=== PATIENT | male | born 1945 | race Caucasian/White ===

== ENCOUNTER → 2018-01-24 08:06 | Outpatient (CLI) | payer MEDICARE, OTHER, SELFPAY ==
--- NOTE | 2018-01-24 | DI.CT.S_ITS ---
PROCEDURE: CT LUMBAR SPINE WO CON INDICATIONS: LUMBAR STENOSIS WITH NEUROGENIC CLAUDICATION TECHNIQUE: Noncontrast 3 mm thick sections acquired from the T12 level to the sacrum. Sagittal and coronal reformats were constructed. For radiation dose reduction, the following was used: automated exposure control. COMPARISON: [facility], , L-SPINE WITHOUT CONTRAST, 12/09/2017, 8:10. FINDINGS: Image quality: Diagnostic. Bones: There are 5 lumbar-type vertebral bodies. The lowest intervertebral disk space is designated as L5-S1. The vertebral body heights are well-maintained without evidence to suggest an acute compression fracture. The bone mineralization is within normal limits. There is straightening of the normal lumbar lordosis. No significant spondylolisthesis is evident. Severe multilevel degenerative changes of the lumbar spine are identified demonstrating multilevel disc height loss, endplate sclerosis, scattered Schmorl's nodes, disc osteophyte complexes, and prominent facet arthrosis. Evaluation of the intervertebral discs is limited on CT. There likely are small scattered disc bulges. No obvious disc protrusions or extrusions are identified. There appear to be multifocal areas of central canal and neural foraminal narrowing of the mid to lower lumbar region. Soft tissues: The soft tissues of the imaged abdomen and pelvis are within normal limits. There is mild aortic atherosclerosis. The prostate appears to be somewhat prominent in size. No retroperitoneal lymphadenopathy or fluid collections are evident. Imaged portions of the kidneys are unremarkable. The adrenals do not appear to be enlarged. IMPRESSION: 1. No acute fracture of the lumbar spine. 2. Advanced multilevel degenerative changes of the lumbar spine are more prominent involving the lower lumbar levels. 3. Straightening of the lumbar lordosis. No significant spondylolisthesis. Dictated by: Miguelangel Gomes M.D. on 01/24/2018 at 9:13 Approved by: Miguelangel Gomes M.D. on 01/24/2018 at 9:50
--- NOTE | 2018-01-24 | DI.RAD.S_ITS ---
PROCEDURE: XR HIP W PEL IF DONE BILAT 2V INDICATIONS: LUMBAR STENOSIS WITH NEUROGENIC CLAUDICATION TECHNIQUE: AP pelvis with lateral view(s) of the bilateral hip(s). COMPARISON: [facility], [facility]STEL, SPINE LUMB 6+VW, 07/28/2015, 9:38. FINDINGS: Bones: No fractures or dislocations. Pelvic ring appears intact. No suspicious bony lesions. Soft tissues: The visualized bowel gas pattern is normal. No suspicious soft tissue calcifications. There is a calcification overlying the medial left iliac bone near the inferior sacroiliac joint, previously present on lumbosacral spine plain film imaging 07/28/15. 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 Benign bone radiodensity medial left iliac bone near the inferior left sacroiliac joint measuring approximately 1 cm in diameter. This was also present in 2014. Dictated by: Uriel Richardson M.D. on 01/24/2018 at 9:06 Approved by: Uriel Richardson M.D. on 01/24/2018 at 9:07
== END ==
PROVIDERS: Visit Provider Student in an Organized Health Care Education/Training Program
DX: M48.062 Spinal stenosis, lumbar region with neurogenic claudication (principal); M51.36 Other intervertebral disc degeneration, lumbar region; M47.816 Spondylosis without myelopathy or radiculopathy, lumbar region
CPT/HCPCS: 72131; 73521

== ENCOUNTER → 2020-06-10 10:06 | Outpatient (CLI) | payer MEDICARE, OTHER, SELFPAY ==
--- NOTE | 2020-06-10 10:10 | DI.CT.S_ITS ---
PROCEDURE: CT LUMBAR SPINE WO CON INDICATIONS: Spinal stenosis, lumbar region with neurogenic cla TECHNIQUE: Noncontrast 3 mm thick sections acquired from the T12 level to the sacrum. Sagittal and coronal reformats were constructed. For radiation dose reduction, the following was used: automated exposure control. COMPARISON: [facility], MR, L-SPINE WITHOUT CONTRAST, 07/22/2015, 14:06. [facility], MR, L-SPINE WITHOUT CONTRAST, 12/09/2017, 8:10. [facility], CR, L-SPINE MINIMUM 4 VIEWS, 12/09/2017, 7:03. [facility], CT, CT LUMBAR SPINE WO CON, 01/24/2018, 8:17. FINDINGS: Image quality: Excellent. Bones: With L4-L5 TLIF noted. Orthopedic hardware is intact. No lucency is identified at the bone hardware interface. There is trace L2-L3 and L3-L4 retrolisthesis. No acute vertebral body compression fractures. No suspicious lytic or blastic bony lesions. No pars defects. Schmorl's nodes noted in the superior endplate of the L2, L3 and L4 vertebral bodies. Schmorl's nodes noted in the inferior endplates of the L2 and L3 vertebral bodies. T12-L1: Loss of disc height. Mild, diffuse disc bulge. Anterior endplate osteophytosis. Mild bilateral facet hypertrophy. Mild narrowing of the central canal. Mild bilateral neural foraminal narrowing. No neural compression. L1-L2: Slight loss of disc height. Vacuum disc phenomenon Mild, diffuse disc bulge. Anterior endplate osteophytosis. Mild bilateral facet hypertrophy. Mild narrowing of the central canal. Mild bilateral neural foraminal narrowing. No neural compression. L2-L3: Loss of disc height. Vacuum disc phenomenon. Moderate, diffuse disc bulge. Anterior endplate osteophytosis. [id number] bilateral facet hypertrophy. Moderate narrowing of the central canal. Severe bilateral neural foraminal narrowing with compression of the exiting L2 nerve roots. L3-L4: Loss of disc height. Mild, diffuse disc bulge. Anterior endplate osteophytosis. Moderate bilateral facet hypertrophy. Moderate narrowing of the central canal. Severe right and moderate left neural foraminal narrowing with compression of the exiting right L3 nerve root. L4-L5: Status post fusion. Mild, diffuse disc bulge. Severe right facet hypertrophy. No central stenosis. Mild right neural foraminal narrowing. No neural compression. L5-S1: Disc height is normal. Vacuum disc phenomenon noted. Mild, diffuse disc bulge. Moderate bilateral facet hypertrophy. Mild narrowing of the central canal. Severe right and moderate to severe left neural foraminal narrowing with compression of the exiting L5 nerve roots. Soft tissues: No retroperitoneal masses or hematomas. Visualized aorta is normal in caliber. IMPRESSION: 1. Status post L4-L5 TLIF. 2. Multilevel degenerative disease. 3. Multilevel facet arthropathy. 4. Moderate L2-L3 and L3-L4 central canal narrowing. 5. Severe bilateral L2-L3 neural foraminal narrowing with compression of the exiting bilateral L2 nerve roots. Severe right L3-L4 neural foraminal narrowing with compression of the exiting right L3 nerve root. Severe right and moderate to severe left L5-S1 neural foraminal narrowing with compression of the exiting L5 nerve roots. Dictated by: Lacey Lomeli MD, PhD on 06/10/2020 at 14:38 Approved by: Lacey Lomeli MD, PhD on 06/10/2020 at 14:45
== END ==
PROVIDERS: PCP Student in an Organized Health Care Education/Training Program; Referring Provider Student in an Organized Health Care Education/Training Program; Visit Provider Student in an Organized Health Care Education/Training Program
DX: M48.062 Spinal stenosis, lumbar region with neurogenic claudication (principal); M48.07 Spinal stenosis, lumbosacral region; M51.36 Other intervertebral disc degeneration, lumbar region; M51.37 Other intervertebral disc degeneration, lumbosacral region; M47.816 Spondylosis without myelopathy or radiculopathy, lumbar region; M47.817 Spondylosis without myelopathy or radiculopathy, lumbosacral region; Z98.1 Arthrodesis status
CPT/HCPCS: 72131

== ENCOUNTER → 2021-01-07 11:38 | Outpatient (CLI) | payer MEDICARE, OTHER, SELFPAY ==
--- NOTE | 2021-01-07 | DI.RAD.S_ITS ---
PROCEDURE: XR CHEST 2V INDICATIONS: Dyspnea, unspecified TECHNIQUE: 2 views of the chest were acquired. COMPARISON: None. FINDINGS: Surgical changes and devices: None. Lungs and pleura: No pleural effusions or pneumothorax. Ill-defined and ground-glass perihilar opacities seen bilaterally. Mediastinum: Mediastinal contours are normal. Heart size is normal. Bones and chest wall: Bilateral shoulder joint degeneration. IMPRESSION: Ill-defined bilateral perihilar patchy and ground-glass opacities. This could represent atelectasis/scarring, low-grade aspiration or early pneumonia, technically nonspecific. If there is persistent clinical diagnostic uncertainty, continued surveillance with short interval radiographic followup after treatment is recommended. Dictated by: Danielito Contreras M.D. on 01/07/2021 at 12:52 Approved by: Danielito Contreras M.D. on 01/07/2021 at 12:57
== END ==
PROVIDERS: PCP Student in an Organized Health Care Education/Training Program; Referring Provider Student in an Organized Health Care Education/Training Program; Visit Provider Student in an Organized Health Care Education/Training Program
DX: R06.00 Dyspnea, unspecified (principal); R60.9 Edema, unspecified
CPT/HCPCS: 71046

== ENCOUNTER → 2021-01-14 11:12 | Outpatient (CLI) | payer MEDICARE, OTHER, SELFPAY ==
[2021-01-14 12:35] LABS: COVID19 -Nasal RAPID Negative (Negative)
== END ==
PROVIDERS: PCP Student in an Organized Health Care Education/Training Program; Visit Provider Student in an Organized Health Care Education/Training Program
DX: Z01.812 Encounter for preprocedural laboratory examination (principal); Z20.822 Contact with and (suspected) exposure to COVID-19
CPT/HCPCS: 87635; C9803

== ENCOUNTER → 2021-01-16 10:25 | Outpatient (CLI) | payer MEDICARE, OTHER, SELFPAY ==
--- NOTE | 2021-01-19 17:51 | DI.NM.S_ITS ---
DATE OF SERVICE: 01/16/2021 PROCEDURE PERFORMED: Exercise treadmill stress and rest myocardial perfusion imaging with gating to assess ejection fraction and regional wall motion. ORDERING PROVIDER: Dr. Estela Maldonado. INDICATIONS: The patient is a 75-year-old male with progressive exertional dyspnea. EXERCISE TREADMILL TESTING: The patient was able to exercise for 4 minutes 7 seconds on a standard Joo protocol, suggesting moderate-severely reduced exercise capacity with an ADELFO of +39%. He had a normal heart rate and blood pressure response to exercise, achieving a maximum heart rate of 127 BPM (89% of his predicted maximum). He had no chest discomfort or anginal symptoms, although had limiting dyspnea. His resting ECG showed sinus rhythm with right axis deviation and poor R-wave progression but relatively normal ST segments. With stress, there were no significant ST-segment shifts or arrhythmias. Oxygen saturation remained around 95% throughout the study. At 3 minutes of exercise at a heart rate of 120 BPM, 26.1 millicuries of technetium-99m Myoview was injected and he was imaged 15 minutes later using a gated SPECT acquisition protocol. He returned three days later and was reinjected with an additional 24.8 millicuries of technetium-99m Myoview and was imaged 30 minutes later, again using a gated SPECT acquisition protocol. FINDINGS: 1. Raw data: There is fairly good myocardial tracer uptake. Lung/heart ratio is normal at 0.32 with a normal TID ratio 0.99. 2. Quantitated gated SPECT: Post-stress ejection fraction is estimated at 62% without any focal wall motion abnormality. Specifically, the anterior wall appears to have normal contractility. The resting ejection fraction is estimated at 63% with a borderline increased end-diastolic volume of 131 mL. 3. Myocardial perfusion imaging: Post-stress supine images shows a fairly normal myocardial perfusion pattern with a mild defect in the inferior wall in a pattern that would be consistent with diaphragmatic attenuation artifact, supported by its complete resolution on the prone images, which reveal a completely normal perfusion pattern. The resting images show a similar perfusion pattern, although with slight improvement in the inferior wall, which is nonspecific given the normal imaging in the prone position. IMPRESSION: 1. Probable normal myocardial perfusion study. 2. Mild, partially reversible inferior perfusion defect that completely resolves on prone imaging, most consistent with diaphragmatic attenuation artifact. Given the normal perfusion in the prone position, there is no evidence for significant myocardial ischemia or previous myocardial infarction. 3. Normal left ventricular systolic function without focal wall motion abnormality. Left ventricular volumes are at the upper limits of normal. 4. Moderate-severely reduced exercise capacity without angina but limiting dyspnea without ECG evidence of ischemia and with normal oxygen saturation levels. Carlos Schneider - PETER/lucio/parrish doc#: [id number]/job#: [id number] dd: 01/19/2021 16:45:00 dt: 01/19/2021 17:35:00 DICTATING MD/COPIES TO: Phani Mejia MD; Estela Maldonado MD COPIES MNE: MELISSA;
== END ==
PROVIDERS: PCP Student in an Organized Health Care Education/Training Program; Referring Provider Student in an Organized Health Care Education/Training Program; Visit Provider Student in an Organized Health Care Education/Training Program
DX: R06.00 Dyspnea, unspecified (principal); R60.9 Edema, unspecified
CPT/HCPCS: 78452; 93017; A9502

== ENCOUNTER → 2021-01-17 10:37 | Outpatient (CLI) | payer MEDICARE, OTHER, SELFPAY ==
[2021-01-17 12:50] LABS: COVID19 -Nasal RAPID Negative (Negative)
== END ==
PROVIDERS: PCP Student in an Organized Health Care Education/Training Program; Referring Provider Student in an Organized Health Care Education/Training Program; Visit Provider Student in an Organized Health Care Education/Training Program
DX: Z01.812 Encounter for preprocedural laboratory examination (principal); Z20.822 Contact with and (suspected) exposure to COVID-19
CPT/HCPCS: 87635; C9803

== ENCOUNTER → 2021-01-28 08:41 | Outpatient (CLI) | payer MEDICARE, OTHER, SELFPAY ==
[2021-01-28 11:31] LABS: COVID19 -Nasal RAPID Negative (Negative)
== END ==
PROVIDERS: PCP Student in an Organized Health Care Education/Training Program; Referring Provider Physician Assistant; Visit Provider Physician Assistant
DX: Z01.812 Encounter for preprocedural laboratory examination (principal); Z20.822 Contact with and (suspected) exposure to COVID-19
CPT/HCPCS: 87635; C9803

== ENCOUNTER → 2021-01-29 08:28 | Outpatient (CLI) | payer MEDICARE, OTHER, SELFPAY ==
--- NOTE | 2021-01-29 | DI.ECHO.S_ITS ---
[facility] +---------+ : : [address] : [place] : : : : [id number] : : : : Phone: [phone]+ Echocardiogram Report + + :Name: ROOSEVELT POWER Study Date: 01/29/2021 Height: 65 in : :[facility] ReadingLocation: Weight: 194 lb : : Gender: Male BSA: 2.0 m2 : :: 1945 Age: 75 yrs BP: 134/77 mmHg: :Reason For Study: Dyspnea : :Ordering Physician: CARROL, : :LAWRENCE Performed By: Shekhar Moran : :Referring: LAWRENCE BRANHAM : + + Interpretation Summary Normal sinus rhythm. Normal LV size; severe concentric LVH; normal wall motion and LV systolic function. EF is 60-65%. Stage II diastolic dysfunction. Mild biatrial enlargement. No significant valvular abnormalities. No prior study available for comparison. Procedure: A two-dimensional transthoracic echocardiogram with color flow and Doppler was performed. The study quality was technically adequate. There is no prior echocardiogram noted for this patient. The patient was in sinus rhythm with heart rates between 61-71 bpm during the exam. Left Ventricle: The left ventricle is normal in size. There is severe concentric left ventricular hypertrophy. Left ventricular systolic function is normal. The ejection fraction is estimated to be 60-65%. There are no focal wall motion abnormalities. Diastolic parameters suggest a pseudonormalization pattern, consistent with probable elevated filling pressures. Right Ventricle: The right ventricle is normal in size and function. Atria: Both atria are mildly dilated. There is no Doppler evidence for an interatrial shunt. Mitral Valve: The mitral valve is normal in structure and function. There is mild mitral regurgitation. Aortic Valve: The aortic valve is slightly calcified. The aortic valve is trileaflet. The aortic valve opens well. No aortic regurgitation is present. Tricuspid Valve: The tricuspid valve is normal in structure and function. There is a trace or physiologic amount of tricuspid regurgitation. Pulmonary artery pressures cannot be estimated because of the lack of a measurable TR jet velocity but the IVC suggests a CVP of around 3 mmHg. Pulmonic Valve: The pulmonic valve is normal in structure and function. There is trace pulmonic regurgitation. Great Vessels: The aortic root is normal size. The dimensions of the ascending aorta are normal. The IVC is of normal diameter and collapses greater than 50% with a sniff. This suggests a low right atrial pressure of 3 mm Hg. Pericardium/ Pleura There is no pericardial effusion. There is no pleural effusion. MMode/2D Measurements & Calculations LVIDd: 4.1 cm LVOT diam: 2.1 cm LVIDs: 2.8 cm Ao root diam: 3.3 cm FS: 30.4 % asc Aorta Diam: 3.6 cm IVSd: 1.6 cm LVPWd: 1.7 cm LV lucero. diameter/BSA (cm/m^2): 2.1 LV sys. diameter/BSA (cm/m^2): 1.5 LA A2 area: 21.4 cm2 RA area: 21.1 cm2 LA A4 area: 23.8 cm2 LA length (vol): 6.1 cm LA vol: 71.5 ml LA vol index: 36.6 ml/m2 RVD1 (basal): 3.8 cm TAPSE: 2.6 cm Doppler Measurements & Calculations Ao V2 max: 107.6 cm/sec LVOT Max Ricardo: 99.5 cm/sec Ao V2 mean: 79.6 cm/sec LV V1 max P.0 mmHg Ao max P.6 mmHg LV V1 VTI: 22.1 cm Ao mean P.7 mmHg KAJAL(I,D): 3.5 cm2 Ao V2 VTI: 22.6 cm KAJAL(V,D): 3.3 cm2 sev ratio: 0.98 KAJAL indexed to BSA (cm^2/m^2): 1.8 MV E max ricardo: 92.8 cm/sec PA pr(Accel): 47.9 mmHg MV A max ricardo: 43.6 cm/sec MV E/A: 2.1 Med Peak E' Ricardo: 5.9 cm/sec E/E' med: 15.7 Lat Peak E' Ricardo: 6.3 cm/sec E/E' lat: 14.7 E/e' average: 15.2 MV dec time: 0.19 sec SV(LVOT): 78.0 ml Electronically signed by: Kathi Duran M.D. on Reading Physician:01/30/2021 12:40 AM
== END ==
PROVIDERS: PCP Student in an Organized Health Care Education/Training Program; Referring Provider Student in an Organized Health Care Education/Training Program; Visit Provider Student in an Organized Health Care Education/Training Program
DX: I34.0 Nonrheumatic mitral (valve) insufficiency (principal); R06.00 Dyspnea, unspecified; R60.9 Edema, unspecified
CPT/HCPCS: 93306

== ENCOUNTER → 2021-04-10 16:41 | Outpatient (CLI) | payer MEDICARE, OTHER, SELFPAY ==
--- NOTE | 2021-04-10 16:43 | DI.MRI.S_ITS ---
PROCEDURE: MR LUMBAR SPINE WO CON INDICATIONS: ARTHRODESIS STATUS TECHNIQUE: Noncontrast sagittal T1 spin echo and T2 fast echo, sagittal STIR, axial T1 and T2 fast spin echo through the lumbar spine. In cases with scoliosis, additional coronal T2 fast spin echo may be performed. COMPARISON: [facility], MR, L-SPINE WITHOUT CONTRAST, 12/09/2017, 8:10. CT, CT LUMBAR SPINE WO CON, 01/24/2018, 8:17. Located [facility], CT, CT LUMBAR SPINE WO CON, 06/10/2020, 10:11. FINDINGS: Image quality: Excellent. Alignment and Curvature: There is mild L2-L3 and L3-L4 retrolisthesis. There is mild L4-L5 anterolisthesis.. Bones: Postsurgical changes compatible with L4-L5 PSIF and L4 laminectomy. Reactive endplate changes noted adjacent to the L2-L3, L3-L4 and L4-L5 discs. No acute vertebral body compression fractures. Spinal Cord: Conus medullaris terminates at the L1-L2 disc level. Visualized cord demonstrates normal signal and size. Paraspinous Soft Tissues: No paravertebral masses. T12-L1: Loss of disc signal. Minimal, diffuse disc bulge. No central stenosis. No neural foraminal narrowing. No neural compression L1-L2: Loss of disc signal. Mild, diffuse disc bulge. Mild bilateral facet hypertrophy. Mild narrowing of the central canal. Mild bilateral neural foraminal narrowing. No neural compression. L2-L3 Loss of disc signal and mild loss of disc height. Moderate, diffuse disc bulge. Moderate bilateral facet hypertrophy. Severe narrowing of the central canal with mild compression of the traversing nerve roots of the cauda equina. Severe bilateral subarticular neural foraminal narrowing with compression of the exiting L2 nerve roots. L3-L4 Loss of disc signal and height. Moderate, diffuse disc bulge. Moderate bilateral facet hypertrophy. Small 5 millimeter in diameter synovial cyst projects off the medial margin of the right L3-L4 facet. Moderate to severe narrowing of the central canal with slight compression of the traversing nerve roots of the cauda equina. Severe bilateral neural foraminal narrowing with compression of the exiting L3 nerve roots. L4-L5: Status post fusion and L4 laminectomy. Pmra-jo-phangmae bilateral facet hypertrophy. No central stenosis. Moderate bilateral neural foraminal narrowing. No neural compression. L5-S1: Loss of disc signal. Mild, diffuse disc bulge. Moderate bilateral facet hypertrophy. Mild narrowing of the central canal. Severe bilateral subarticular neural foraminal narrowing with compression of the exiting L5 nerve roots. IMPRESSION: 1. Stable postsurgical changes. 2. Multilevel degenerative disc disease. 3. Multilevel facet arthropathy. 4. Severe L2-L3 central canal narrowing with compression of the nerve roots of the cauda equina. Moderate to severe L3-L4 central canal narrowing with slight compression of the nerve roots of the cauda equina. 5. Severe bilateral L2-L3, L3-L4 and L4-L5 neural foraminal narrowing with compression of the exiting bilateral L2, L3 and L5 nerve roots. Dictated by: Lacey Lomeli MD, PhD on 04/13/2021 at 9:35 Approved by: Lacey Lomeli MD, PhD on 04/13/2021 at 9:44
== END ==
PROVIDERS: PCP Student in an Organized Health Care Education/Training Program; Referring Provider Student in an Organized Health Care Education/Training Program; Visit Provider Student in an Organized Health Care Education/Training Program
DX: M48.062 Spinal stenosis, lumbar region with neurogenic claudication (principal); M48.07 Spinal stenosis, lumbosacral region; M51.36 Other intervertebral disc degeneration, lumbar region; M51.37 Other intervertebral disc degeneration, lumbosacral region; M47.816 Spondylosis without myelopathy or radiculopathy, lumbar region; M47.817 Spondylosis without myelopathy or radiculopathy, lumbosacral region; Z98.1 Arthrodesis status
CPT/HCPCS: 72148

== ENCOUNTER → 2021-06-02 12:31 | Outpatient (CLI) | payer MEDICARE, OTHER, SELFPAY | PROVIDERS: PCP Student in an Organized Health Care Education/Training Program; Referring Provider Urology; Visit Provider Urology | DX: R97.20 Elevated prostate specific antigen [PSA] (principal); N40.1 Benign prostatic hyperplasia with lower urinary tract symptoms | CPT/HCPCS: 36415; 84153 ==

== ENCOUNTER → 2021-08-13 08:31 | Outpatient (CLI) | payer MEDICARE, OTHER, SELFPAY ==
[2021-08-13 10:07] LABS: BUN Creatinine Ratio 22.6 (6-22); Blood Urea Nitrogen 38 mg/dL (9-20); Calcium 9.4 mg/dL (8.4-10.2); Carbon Dioxide 25 mmol/L (22-32); Chloride 100 mmol/L (98-107); Estimated Glomerular Filt Rate 39.7 mL/min (>60); Glucose 226 mg/dL (80-110); HEMOLYSIS < 15 (0-50); Sodium 137 mmol/L (137-145)
== END ==
PROVIDERS: PCP Student in an Organized Health Care Education/Training Program; Referring Provider Nurse Practitioner Family; Visit Provider Nurse Practitioner Family
DX: I10 Essential (primary) hypertension (principal)
CPT/HCPCS: 36415; 80048

== ENCOUNTER → 2021-08-17 07:57 | Outpatient (CLI) | payer MEDICARE, OTHER, SELFPAY ==
--- NOTE | 2021-08-17 | DI.ECHO.S_ITS ---
[facility] +---------+ : : [address] : [address] : [place] : : : : [id number] : : : : Phone: [phone]+ Echocardiogram Report + + :Name: ROOSEVELT POWER Study Date: 08/17/2021 Height: 65 in : :[facility] ReadingLocation: Weight: 200 lb: : Gender: Male BSA: 2.0 m2 : :: 1945 Age: 76 yrs BP: 99/59 mmHg: :Reason For Study: ANGINA, ATHEROSCLEROTIC HEART DISEASE OF : :CROW CORONARY ARTERY : :Ordering Physician: MI, : :TITUS Performed By: Marilyn Gavin : :Referring: TITUS RICHMOND : + + Interpretation Summary Left ventricular wall thickness is moderately increased. The ejection fraction is estimated to be 60-65%. There is no echo evidence for significant left ventricular outflow tract obstruction. A patent foramen ovale is suspected. There is mild mitral regurgitation. Wall thickness has slightly decreased. Procedure: A two-dimensional transthoracic echocardiogram with color flow and Doppler was performed. The study quality was technically adequate. Comparison is made with the echocardiogram of 01/29/2021. The heart rate ranged between 53-58 bpm during the study. Left Ventricle: The left ventricular cavity is small. Left ventricular wall thickness is moderately increased. There is no echo evidence for significant left ventricular outflow tract obstruction. The ejection fraction is estimated to be 60-65%. Left ventricular wall motion is normal. Right Ventricle: The right ventricle is at the upper limits of normal in size. The right ventricular systolic function is normal. Atria: The left atrium is moderately dilated. Right atrial size is normal. A patent foramen ovale is suspected. Mitral Valve: The mitral valve is normal in structure and function. There is mild mitral regurgitation. Aortic Valve: The aortic valve is trileaflet. The aortic valve opens well. There is no aortic valve stenosis. No aortic regurgitation is present. Tricuspid Valve: The tricuspid valve is normal in structure and function. There is mild tricuspid regurgitation. Pulmonary artery pressures cannot be estimated because of the lack of a measurable TR jet velocity but the IVC suggests a CVP of around 8 mmHg. Pulmonic Valve: The pulmonic valve is not well visualized. There is trace pulmonic regurgitation. Great Vessels: The aortic root is normal size. The ascending aorta is mildly enlarged. The IVC is dilated (diameter is greater than 2.1 cm) yet it collapses greater than 50% with a sniff. This suggests a right atrial pressure of 8 mm Hg. Pericardium/ Pleura There is no pericardial effusion. There is no pleural effusion. MMode/2D Measurements & Calculations LVIDd: 3.1 cm LVOT diam: 2.1 cm LVIDs: 2.9 cm Ao root diam: 3.4 cm FS: 7.6 % asc Aorta Diam: 3.7 cm IVSd: 1.5 cm Ao Arch Diam (Prox Trans): 3.7 cm LVPWd: 1.5 cm LV lucero. diameter/BSA (cm/m^2): 1.6 LV sys. diameter/BSA (cm/m^2): 1.4 LA A2 area: 26.6 cm2 RA long axis: 5.5 cm LA A4 area: 26.5 cm2 RA area: 20.6 cm2 LA length (vol): 6.8 cm RA vol: 65.6 ml LA vol: 87.8 ml RA : 33.2 ml/m2 LA vol index: 44.4 ml/m2 IVC diam: 2.3 cm RVD1 (basal): 4.2 cm RVD2 (mid): 3.5 cm TAPSE: 2.1 cm Doppler Measurements & Calculations Ao V2 max: 106.2 cm/sec LVOT Max Ricardo: 108.0 cm/sec Ao V2 mean: 79.2 cm/sec LV V1 max P.7 mmHg Ao max P.5 mmHg LV V1 VTI: 23.0 cm Ao mean P.7 mmHg KAJAL(I,D): 3.8 cm2 Ao V2 VTI: 21.6 cm KAJAL(V,D): 3.6 cm2 sev ratio: 1.1 KAJAL indexed to BSA (cm^2/m^2): 1.9 MV E max ricardo: 105.7 cm/sec PA V2 max: 74.9 cm/sec MV A max ricardo: 24.6 cm/sec PA V2 mean: 50.4 cm/sec MV E/A: 4.3 PA mean P.2 mmHg Med Peak E' Ricardo: 6.4 cm/sec PA pr(Accel): 27.6 mmHg E/E' med: 16.6 Lat Peak E' Ricardo: 6.3 cm/sec E/E' lat: 16.9 E/e' average: 16.7 MV dec time: 0.26 sec SV(LVOT): 80.9 ml Reading Physician:10:08 AM
== END ==
PROVIDERS: PCP Student in an Organized Health Care Education/Training Program; Referring Provider Internal Medicine Cardiovascular Disease; Visit Provider Internal Medicine Cardiovascular Disease
DX: I08.0 Rheumatic disorders of both mitral and aortic valves (principal); I77.89 Other specified disorders of arteries and arterioles; I25.10 Atherosclerotic heart disease of native coronary artery without angina pectoris
CPT/HCPCS: 93306

== ENCOUNTER → 2021-08-21 07:53 | Outpatient (CLI) | payer MEDICARE, OTHER, SELFPAY ==
[2021-08-21 09:10] LABS: BUN Creatinine Ratio 26.9 (6-22); Blood Urea Nitrogen 50 mg/dL (9-20); Calcium 8.8 mg/dL (8.4-10.2); Carbon Dioxide 21 mmol/L (22-32); Chloride 103 mmol/L (98-107); Estimated Glomerular Filt Rate 35.3 mL/min (>60); Glucose 148 mg/dL (80-110); HEMOLYSIS < 15 (0-50); Potassium 4.2 mmol/L (3.4-5.1); Sodium 138 mmol/L (137-145)
== END ==
PROVIDERS: PCP Student in an Organized Health Care Education/Training Program; Referring Provider Nurse Practitioner Family; Visit Provider Nurse Practitioner Family
DX: I10 Essential (primary) hypertension (principal)
CPT/HCPCS: 36415; 80048

== ENCOUNTER → 2021-08-24 10:29 | Outpatient (CLI) | payer MEDICARE, OTHER, SELFPAY ==
--- NOTE | 2021-08-24 | DI.RAD.S_ITS ---
PROCEDURE: XR CHEST 2V INDICATIONS: Dyspnea, unspecified TECHNIQUE: 2 views of the chest were acquired. COMPARISON: [facility], CR, XR CHEST 2V, 01/07/2021, 11:38. FINDINGS: Surgical changes and devices: None. Lungs and pleura: Subtle increased opacification in the lung bases bilaterally. No pleural effusions or pneumothorax. Mediastinum: Mediastinal contours are normal. Heart size is normal. Bones and chest wall: No suspicious bony abnormalities. Soft tissues appear unremarkable. Chronic proximal right humerus fracture is stable. IMPRESSION: Subtle bibasilar opacities which could represent atelectasis or pneumonia. Dictated by: Lacey Lomeli MD, PhD on 08/24/2021 at 16:24 Approved by: Lacey Lomeli MD, PhD on 08/24/2021 at 16:25
== END ==
PROVIDERS: PCP Student in an Organized Health Care Education/Training Program; Referring Provider Nurse Practitioner Family; Visit Provider Nurse Practitioner Family
DX: R06.00 Dyspnea, unspecified (principal)
CPT/HCPCS: 71046

== ENCOUNTER → 2021-09-10 08:07 | Outpatient (CLI) | payer MEDICARE, OTHER, SELFPAY ==
[2021-09-11 10:55] LABS: PSA Free % 27.9 % (.); PSA, Total 5.7 ng/mL (0.0-4.0)
== END ==
PROVIDERS: PCP Student in an Organized Health Care Education/Training Program; Referring Provider Urology; Visit Provider Urology
DX: R97.20 Elevated prostate specific antigen [PSA] (principal)
CPT/HCPCS: 36415; 84153; 84154

== ENCOUNTER 2021-09-28 08:30 | Outpatient (RCR) | payer MEDICARE, OTHER, SELFPAY | END 2021-09-28 10:30 | LOC: CAR 08:30 | PROVIDERS: PCP Student in an Organized Health Care Education/Training Program; Referring Provider Internal Medicine Cardiovascular Disease; Visit Provider Internal Medicine Cardiovascular Disease | DX: Z95.5 Presence of coronary angioplasty implant and graft (principal) | CPT/HCPCS: 93798 ==

== ENCOUNTER → 2021-12-10 08:43 | Outpatient (CLI) | payer MEDICARE, OTHER, SELFPAY ==
[2021-12-11 08:12] LABS: PSA Free % 30.5 % (.); PSA, Total 3.7 ng/mL (0.0-4.0)
== END ==
PROVIDERS: PCP Student in an Organized Health Care Education/Training Program; Referring Provider Urology; Visit Provider Urology
DX: R97.20 Elevated prostate specific antigen [PSA] (principal)
CPT/HCPCS: 36415; 84153; 84154

== ENCOUNTER 2021-12-20 15:16 | Emergency (ER) | payer MEDICARE, OTHER, SELFPAY ==
[2021-12-20] VITALS (13 sets, daily range): BP systolic 120–155; BP diastolic 63–82; PULSE 80–110; RESP 22–28; TEMP 36.7–36.9; O2SAT 96–99; BMI 29.9
--- NOTE | 2021-12-20 16:00 | ED.SOB ---
HPI - SOB/Dyspnea General Chief Complaint: Shortness of Breath/Dyspnea Stated Complaint: sob, poss. mold exp., hx of chf, no eat/drink Time Seen by Provider: 12/20/21 16:00 Source: patient and family Mode of arrival: Wheelchair History of Present Illness HPI Narrative: 76-year-old male former smoker with extensive medical history including diabetes, coronary artery disease with prior stenting, hypertension, hyperlipidemia and a recent back surgery presents with his daughter for evaluation of generalized weakness, shortness of breath and fatigue for least 1 week. Patient lives at home alone and daughter came to check on him today and states he just did not look well. He has had some decline over this time frame and states he even fell on Tuesday, striking his head. His shortness of breath is worse when he lays flat and worse with exertion. Denies any chest pain or cough. He has had nausea but denies any vomiting. He has states he has been having a hard time with bowel movements and urinating. He denies fever or chills. He denies any new medications or dietary change. Patient states he stopped taking his medications recently because he got tired of taking them. There is some concern about the possibility of black mold at his house. Related Data Home Medications Medication Instructions Recorded Confirmed acarbose 50 mg tablet 50 mg PO BID tab 03/25/21 09/15/21 amlodipine 10 mg tablet 10 mg PO DAILY 03/25/21 09/15/21 atorvastatin 20 mg tablet 20 mg PO BEDTIME 03/25/21 09/15/21 furosemide 20 mg tablet 40 mg PO BID tab 03/25/21 09/15/21 glimepiride 4 mg tablet 4 mg PO BID tab 03/25/21 09/15/21 liraglutide 0.6 mg/0.1 mL (18 mg/3 1.8 mg SUBCUT DAILY ml 03/25/21 09/15/21 mL) subcutaneous pen injector (Victoza 2-Ric) losartan 100 mg tablet 100 mg PO DAILY 03/25/21 09/15/21 metformin 500 mg tablet 1,000 mg PO .morning tab 03/25/21 09/15/21 metformin 500 mg tablet 1,500 mg PO BEDTIME tab 03/25/21 09/15/21 potassium chloride 10 mEq 10 meq PO DAILY tab 03/25/21 09/15/21 tablet,extended release(part/cryst) aspirin 81 mg tablet,delayed 81 mg PO DAILY 06/09/21 09/15/21 release (Adult Aspirin Regimen) clopidogrel 75 mg tablet (Plavix) 75 mg PO DAILY 06/09/21 09/15/21 Previous Rx's Medication Instructions Recorded tadalafil 5 mg tablet (Cialis) 5 mg PO DAILY #90 tab 06/09/21 tamsulosin 0.4 mg capsule (Flomax) 0.4 mg PO BID #180 cap 06/09/21 tadalafil 20 mg tablet See Rx Instructions .ROUTE 07/13/21 .COMPLEX #6 tab Allergies Allergy/AdvReac Type Severity Reaction Status Date / Time No Known Drug Allergies Allergy Verified 12/20/21 15:42 Review of Systems Review of Systems Narrative: GENERAL: HPI HEENT: Denies sinus pain, ear pain, sore throat, difficulty swallowing, dizziness. RESPIRATORY: See HPI CARDIOVASCULAR: See HPI GASTROINTESTINAL: See HPI : Denies dysuria, frequency, incontinence, hematuria, urinary retention. MUSCULOSKELETAL: denies weakness, joint pain, or bony pain SKIN: Denies rash, skin lesions, or other NEUROLOGIC: Denies weakness, headache, numbness, change in speech, confusion, seizures, incoordination. PSYCHIATRIC: No concerning psychosocial issues. 12 point review of systems is negative except for those stated above Patient History Medical History BPH loc w urin obs/LUTS Broken ankle Broken shoulder Broken wrist Chronic anticoagulation Diabetes Elevated PSA Enlarged prostate Erectile dysfunction due to arterial insufficiency HTN (hypertension) Hyperlipemia Surgical History H/O heart artery stent H/O right wrist surgery History of arthroplasty of right ankle Previous back surgery Family History Father Cancer Mother Cancer Sister Cancer Social History marital status: unmarried,single household members: none education level: high school Previous occupational history: retired Smoking Status: Former smoker Smoking Status: Former smoker Substance Use Type: does not use Exam Narrative Exam Narrative: GENERAL: [76 year old patient appears stated age. Well-developed patient, in mild distress. Ill-appearing, slightly pale, dry HEAD: Atraumatic. Normocephalic. EYES: Pupils equal round and reactive. Extraocular motions intact. No scleral icterus. No injection or drainage. ENT: Dry mucous membrane Nose without bleeding, purulent drainage. Throat without erythema, tonsillar hypertrophy or exudate. Airway patent. NECK: Trachea midline. Non tender CARDIOVASCULAR: Regular rate and rhythm without murmurs, gallops, or rubs. RESPIRATORY: No significant increased work of breathing, faint crackles noted in left base GASTROINTESTINAL: Abdomen soft, non-tender, mild distension RECTAL: No pain, melena present, heme-positive EXTREMITIES: No edema or joint tenderness. BACK: Nontender without deformity or crepitance. No flank tenderness. NEURO: AOx3. SKIN: Poor skin turgor No rash or erythema of visible areas Initial Vital Signs Initial Vital Signs: Vital Signs Temperature 98.0 F 12/20/21 15:37 Pulse Rate 110 H 12/20/21 15:37 Respiratory Rate 28 H 12/20/21 15:37 Blood Pressure 155/72 H 12/20/21 15:37 Pulse Oximetry 98 12/20/21 15:37 Course Orders Ordered: ED Orders 12/20/21 15:51 Complete Blood Count AUTO DIFF Stat Comprehensive Metabolic Panel Stat D Dimer Stat Lactate (Lactic Acid) Stat NT-proBNP (BNP-Adult 18+) Stat Procalcitonin Stat Prothrombin Time INR Stat Troponin & CK Cardiac Panel Stat 12/20/21 16:01 XR chest 1V Stat Urinalysis and Microscopic Stat 12/20/21 16:04 COVID19 -Nasal RAPID/Pre-Proc Stat 12/20/21 16:22 Blood Culture Stat 12/20/21 16:37 Type and Screen Stat VBG [Venous Blood Gas] Stat 12/20/21 16:38 CT chest abd pel wo con Stat CT head/brain wo con Stat 12/20/21 16:45 Urine Culture Stat Lactated Ringer's (Lactated Ringers) 1,845 mls @ 615 mls/hr 30 ml/kg infuse over 3 hr (1845 ml) IV NOW ONE Stop: 12/20/21 19:00 Last Admin: 12/20/21 16:57 Dose: 615 mls/hr Documented by: Discontinued Medications Ceftriaxone Sodium 2,000 mg/ (Sodium Chloride) 100 mls @ 200 mls/hr IV NOW ONE Stop: 12/20/21 18:46 Last Admin: 12/20/21 18:50 Dose: 200 mls/hr Documented by: Pantoprazole Sodium (Pantoprazole 40 Mg Vial) 40 mg IV NOW ONE Stop: 12/20/21 16:38 Last Admin: 12/20/21 16:57 Dose: 40 mg Documented by: Consultations Consultation #1: call to Send[facility] (transportation broker for PCP) Time: 17:09 Consultation #2: discussed with Dr. Duran ([facility] Cardio) no specific cardiac intervention at this time Vital Signs Vital signs: Vital Signs - 8 hr 12/20/21 15:37 12/20/21 16:14 12/20/21 16:15 Temperature 98.0 F Pulse Rate 110 H 89 Respiratory Rate 28 H 24 Blood Pressure 155/72 H 149/68 H Pulse Oximetry 98 12/20/21 16:30 12/20/21 16:36 12/20/21 16:54 Temperature Pulse Rate 91 H 88 82 Respiratory Rate 23 25 H 23 Blood Pressure 139/82 148/67 H Pulse Oximetry 98 99 99 12/20/21 17:00 12/20/21 17:30 12/20/21 18:00 Temperature Pulse Rate 83 83 81 Respiratory Rate 24 24 24 Blood Pressure 133/66 142/66 H 120/68 Pulse Oximetry 98 97 97 12/20/21 18:30 Temperature Pulse Rate 81 Respiratory Rate 22 Blood Pressure 135/63 Pulse Oximetry 96 MDM - SOB/Dyspnea Lab Data Result diagrams: 12/20/21 15:51 12/20/21 15:51 Labs: Lab Results 12/20/21 12/20/21 12/20/21 Range/Units 15:51 15:51 15:51 WBC 19.4 H (4.5-11.0) X10^3/uL RBC 3.67 L (4.5-5.9) X10^6/uL Hgb 9.5 L (13.5-17.5) g/dL Hct 29.3 L (41-53) % MCV 79.9 L (80-100) fL MCH 26.0 (26-34) PG MCHC 32.5 (30-36) % RDW 16.2 H (11.6-14.8) % Plt Count 435 H (150-400) X10^3/uL Neut % (Auto) 86.9 H (50-75) % Lymph % (Auto) 3.3 L (25-40) % Valencia % (Auto) 9.3 (3-14) % Eos % (Auto) 0.4 L (2-4) % Baso % (Auto) 0.1 (0-2) % Neut # (Auto) 89825 H (9994-3675) /uL Lymph # (Auto) 600 L (7420-2944) /uL Valencia # (Auto) 1800 H (0-900) /uL Eos # (Auto) 100 (0-450) /uL Baso # (Auto) 0 (0-100) /uL PT 14.5 H (10.1-12.7) SECONDS INR 1.3 (0.9-1.3) D-Dimer 2762 H (<230) ng/mL VBG pH (7.33-7.43) VBG pCO2 (45-50) mmHg VBG pO2 (35-45) mmHg VBG HCO3 (23-28) mmol/L VBG Total CO2 (24-29) mmol/L VBG O2 Saturation (70-75) % VBG Base Excess (0-4) mmol/L Sodium 130 L (137-145) mmol/L Potassium 4.1 (3.4-5.1) mmol/L Chloride 95 L (98-107) mmol/L Carbon Dioxide 22 (22-32) mmol/L BUN 73 H (9-20) mg/dL Creatinine 2.82 H (0.66-1.25) mg/dL Estimated GFR 21.8 L (>60) mL/min BUN/Creatinine Ratio 25.9 H (6-22) Glucose 216 H (80-110) mg/dL Lactate (0.7-2.1) mmol/L Calcium 7.6 L (8.4-10.2) mg/dL Total Bilirubin 0.6 (0.2-1.3) mg/dL AST 31 (17-59) IU/L ALT 17 (<50) IU/L Alkaline Phosphatase 100 (38-126) U/L Total Creatine Kinase 31 L (55-170) U/L CK-MB (CK-2) TNP CK-MB (CK-2) Rel Index TNP Troponin I 0.224 H* (0.01-0.034) ng/mL NT-Pro-B Natriuret Pep 24570 H (<450) pg/mL Total Protein 6.1 L (6.3-8.2) g/dL Albumin 3.0 L (3.5-5.0) g/dL Globulin 3.1 (1.7-4.1) g/dL Albumin/Globulin Ratio 1.0 (1.0-2.8) Procalcitonin 2.26 H (<0.5) ng/mL Urine Color Urine Appearance Urine pH (4.5-8.0) Ur Specific [place] (1.000-1.035) Urine Protein (Negative) Urine Glucose (UA) (Negative) g/dL Urine Ketones (NEGATIVE) Urine Occult Blood (Negative) Urine Nitrate (Negative) Urine Bilirubin (NEGATIVE) Urine Urobilinogen (0.2) E.U./dL Ur Leukocyte Esterase (NEGATIVE) Urine RBC (0-5/HPF) Urine WBC (0-5/HPF) Ur Squamous Epith Cells (0-5/HPF) Amorphous Sediment Urine Bacteria (None) Ur Culture Indicated? SARS-CoV-2 (PCR) (Negative) Blood Type Antibody Screen 12/20/21 12/20/21 12/20/21 Range/Units 15:51 15:51 16:20 WBC (4.5-11.0) X10^3/uL RBC (4.5-5.9) X10^6/uL Hgb (13.5-17.5) g/dL Hct (41-53) % MCV (80-100) fL MCH (26-34) PG MCHC (30-36) % RDW (11.6-14.8) % Plt Count (150-400) X10^3/uL Neut % (Auto) (50-75) % Lymph % (Auto) (25-40) % Valencia % (Auto) (3-14) % Eos % (Auto) (2-4) % Baso % (Auto) (0-2) % Neut # (Auto) (4936-9510) /uL Lymph # (Auto) (3333-4145) /uL Valencia # (Auto) (0-900) /uL Eos # (Auto) (0-450) /uL Baso # (Auto) (0-100) /uL PT (10.1-12.7) SECONDS INR (0.9-1.3) D-Dimer (<230) ng/mL VBG pH (7.33-7.43) VBG pCO2 (45-50) mmHg VBG pO2 (35-45) mmHg VBG HCO3 (23-28) mmol/L VBG Total CO2 (24-29) mmol/L VBG O2 Saturation (70-75) % VBG Base Excess (0-4) mmol/L Sodium (137-145) mmol/L Potassium (3.4-5.1) mmol/L Chloride (98-107) mmol/L Carbon Dioxide (22-32) mmol/L BUN (9-20) mg/dL Creatinine (0.66-1.25) mg/dL Estimated GFR (>60) mL/min BUN/Creatinine Ratio (6-22) Glucose (80-110) mg/dL Lactate 1.5 (0.7-2.1) mmol/L Calcium (8.4-10.2) mg/dL Total Bilirubin (0.2-1.3) mg/dL AST (17-59) IU/L ALT (<50) IU/L Alkaline Phosphatase (38-126) U/L Total Creatine Kinase (55-170) U/L CK-MB (CK-2) CK-MB (CK-2) Rel Index Troponin I (0.01-0.034) ng/mL NT-Pro-B Natriuret Pep (<450) pg/mL Total Protein (6.3-8.2) g/dL Albumin (3.5-5.0) g/dL Globulin (1.7-4.1) g/dL Albumin/Globulin Ratio (1.0-2.8) Procalcitonin (<0.5) ng/mL Urine Color Urine Appearance Urine pH (4.5-8.0) Ur Specific [place] (1.000-1.035) Urine Protein (Negative) Urine Glucose (UA) (Negative) g/dL Urine Ketones (NEGATIVE) Urine Occult Blood (Negative) Urine Nitrate (Negative) Urine Bilirubin (NEGATIVE) Urine Urobilinogen (0.2) E.U./dL Ur Leukocyte Esterase (NEGATIVE) Urine RBC (0-5/HPF) Urine WBC (0-5/HPF) Ur Squamous Epith Cells (0-5/HPF) Amorphous Sediment Urine Bacteria (None) Ur Culture Indicated? SARS-CoV-2 (PCR) Negative (Negative) Blood Type O Positive Antibody Screen Negative 12/20/21 12/20/21 Range/Units 16:45 16:59 WBC (4.5-11.0) X10^3/uL RBC (4.5-5.9) X10^6/uL Hgb (13.5-17.5) g/dL Hct (41-53) % MCV (80-100) fL MCH (26-34) PG MCHC (30-36) % RDW (11.6-14.8) % Plt Count (150-400) X10^3/uL Neut % (Auto) (50-75) % Lymph % (Auto) (25-40) % Valencia % (Auto) (3-14) % Eos % (Auto) (2-4) % Baso % (Auto) (0-2) % Neut # (Auto) (4293-5195) /uL Lymph # (Auto) (5359-2439) /uL Valencia # (Auto) (0-900) /uL Eos # (Auto) (0-450) /uL Baso # (Auto) (0-100) /uL PT (10.1-12.7) SECONDS INR (0.9-1.3) D-Dimer (<230) ng/mL VBG pH 7.41 (7.33-7.43) VBG pCO2 35.9 L (45-50) mmHg VBG pO2 22 L (35-45) mmHg VBG HCO3 23 (23-28) mmol/L VBG Total CO2 24 (24-29) mmol/L VBG O2 Saturation 38 L (70-75) % VBG Base Excess -2.0 L (0-4) mmol/L Sodium (137-145) mmol/L Potassium (3.4-5.1) mmol/L Chloride (98-107) mmol/L Carbon Dioxide (22-32) mmol/L BUN (9-20) mg/dL Creatinine (0.66-1.25) mg/dL Estimated GFR (>60) mL/min BUN/Creatinine Ratio (6-22) Glucose (80-110) mg/dL Lactate (0.7-2.1) mmol/L Calcium (8.4-10.2) mg/dL Total Bilirubin (0.2-1.3) mg/dL AST (17-59) IU/L ALT (<50) IU/L Alkaline Phosphatase (38-126) U/L Total Creatine Kinase (55-170) U/L CK-MB (CK-2) CK-MB (CK-2) Rel Index Troponin I (0.01-0.034) ng/mL NT-Pro-B Natriuret Pep (<450) pg/mL Total Protein (6.3-8.2) g/dL Albumin (3.5-5.0) g/dL Globulin (1.7-4.1) g/dL Albumin/Globulin Ratio (1.0-2.8) Procalcitonin (<0.5) ng/mL Urine Color Yellow Urine Appearance Sl cloudy Urine pH 5.5 (4.5-8.0) Ur Specific [place] 1.010 (1.000-1.035) Urine Protein 2+ H (Negative) Urine Glucose (UA) Negative (Negative) g/dL Urine Ketones Negative (NEGATIVE) Urine Occult Blood 3+ H (Negative) Urine Nitrate Negative (Negative) Urine Bilirubin Negative (NEGATIVE) Urine Urobilinogen 0.2 (0.2) E.U./dL Ur Leukocyte Esterase 2+ H (NEGATIVE) Urine RBC 10-30/hpf H (0-5/HPF) Urine WBC >100/hpf H (0-5/HPF) Ur Squamous Epith Cells 1-5 /hpf (0-5/HPF) Amorphous Sediment 1+ Urine Bacteria Many (>30) H (None) Ur Culture Indicated? Specimen cultured SARS-CoV-2 (PCR) (Negative) Blood Type Antibody Screen Imaging Data CT scan - head: Radiologist's Impression: Launch?[address] [address] [address] Scan Report Signed Patient: Carlos Schneider MR#: [id number] : 1945 Acct:[id number] Age/Sex: 76 / M Date of Service: 12/20/21 Loc: ED Accession Number: [id number] ?? Procedure: CT head/brain wo con Ordering Provider: Dorian De Jesus D.O. PROCEDURE:? CT HEAD/BRAIN WO CON ? INDICATIONS:? Short of breath, weak, cough, severe kidney injury ? TECHNIQUE:? Noncontrast 4.5 mm thick angled axial sections acquired from the foramen magnum to the vertex, with coronal and sagittal reformats.? For radiation dose reduction, the following was used:? automated exposure control, adjustment of mA and/or kV according to patient size.? ? COMPARISON:? [facility], CT, CT CHEST ABD PEL WO CON, 12/20/2021, 16:44. ? FINDINGS:? Image quality:? Excellent.? ? CSF spaces:? Basal cisterns are patent.? No extra-axial fluid collections.? The ventricles are symmetric in size and shape.? ? Brain:? No intracranial bleeds or masses.? There is cerebral volume loss for age, with resultant ventricular and sulcal prominence.? There are periventricular and deep white matter chronic small vessel ischemic changes.? There is intracranial internal carotid artery atherosclerosis.? ? Skull and face:? Calvarium and visualized facial bones appear intact, without suspicious lesions.? ? Sinuses:? Mild mucosal thickening is seen involving the visualized right maxillary sinus. ?The paranasal sinuses otherwise appear clear. No abnormal fluid is seen within the mastoid air cells. ? ? IMPRESSION:? ? No acute intracranial process is seen.? ? Note is made of age-appropriate brain parenchymal volume loss and chronic small vessel ischemic changes. ? Focal mild right maxillary sinus disease incidentally noted.? ? Dictated by: Silvino Miramontes M.D. on 12/20/2021 at 16:13 ? ? Approved by: Silvino Miramontes M.D. on 12/20/2021 at 16:14 ? CT scan - chest: Radiologist's Impression: Launch?Image [address] [address] [address] Scan Report Signed Patient: Carlos Schneider MR#: [id number] : 1945 Acct:[id number] Age/Sex: 76 / M Date of Service: 12/20/21 Loc: ED Accession Number: [id number] ?? Procedure: CT head/brain wo con Ordering Provider: Dorian De Jesus D.O. PROCEDURE:? CT HEAD/BRAIN WO CON ? INDICATIONS:? Short of breath, weak, cough, severe kidney injury ? TECHNIQUE:? Noncontrast 4.5 mm thick angled axial sections acquired from the foramen magnum to the vertex, with coronal and sagittal reformats.? For radiation dose reduction, the following was used:? automated exposure control, adjustment of mA and/or kV according to patient size.? ? COMPARISON:? [facility], CT, CT CHEST ABD PEL WO CON, 12/20/2021, 16:44. ? FINDINGS:? Image quality:? Excellent.? ? CSF spaces:? Basal cisterns are patent.? No extra-axial fluid collections.? The ventricles are symmetric in size and shape.? ? Brain:? No intracranial bleeds or masses.? There is cerebral volume loss for age, with resultant ventricular and sulcal prominence.? There are periventricular and deep white matter chronic small vessel ischemic changes.? There is intracranial internal carotid artery atherosclerosis.? ? Skull and face:? Calvarium and visualized facial bones appear intact, without suspicious lesions.? ? Sinuses:? Mild mucosal thickening is seen involving the visualized right maxillary sinus. ?The paranasal sinuses otherwise appear clear. No abnormal fluid is seen within the mastoid air cells. ? ? IMPRESSION:? ? No acute intracranial process is seen.? ? Note is made of age-appropriate brain parenchymal volume loss and chronic small vessel ischemic changes. ? Focal mild right maxillary sinus disease incidentally noted.? ? Dictated by: Silvino Miramontes M.D. on 12/20/2021 at 16:13 ? ? Approved by: Silvino Miramontes M.D. on 12/20/2021 at 16:14 ? Critical Care Time Critical Care Time Critical Care Time: Yes Total Critical Care Time: 35 Attestation: The high probability of a clinically significant, sudden or life threatening deterioration of the [CV] system(s) required my full and direct attention, intervention and personal management. The aggregate critical care time was [35] minutes. This time is in addition to time spent performing reported procedures but includes the following: [x] Data Review and interpretation [x] Patient assessment and monitoring of vital signs [x] Documentation [x] Medication orders and management Discharge Plan Departure [facility] Clinical Impression: Acute UTI, Sepsis, Acute kidney injury, Acute CHF, Elevated troponin, Acute GI bleeding Prescriptions: No Action tadalafil 20 mg tablet See Rx Instructions .ROUTE .COMPLEX Qty: 6 6RF Dose Instruction: Take one tablet by mouth daily as needed for sexual activity; administer approximately 30min before sexual activity; do not use more than 1 dose per 24hrs Rx Instructions: Take one tablet by mouth daily as needed for sexual activity; administer approximately 30min before sexual activity; do not use more than 1 dose per 24hrs clopidogrel [Plavix] 75 mg tablet 75 mg PO DAILY 0RF aspirin [Adult Aspirin Regimen] 81 mg tablet,delayed release (DR/EC) 81 mg PO DAILY 0RF tamsulosin [Flomax] 0.4 mg capsule 0.4 mg PO BID Qty: 180 3RF tadalafil [Cialis] 5 mg tablet 5 mg PO DAILY Qty: 90 3RF Victoza 2-Ric 0.6 mg/0.1 mL (18 mg/3 mL) pen injector 1.8 mg SUBCUT DAILY 0RF metformin 500 mg tablet 1,000 mg PO .morning 0RF metformin 500 mg tablet 1,500 mg PO BEDTIME 0RF losartan 100 mg tablet 100 mg PO DAILY 0RF glimepiride 4 mg tablet 4 mg PO BID 0RF atorvastatin 20 mg tablet 20 mg PO BEDTIME 0RF amlodipine 10 mg tablet 10 mg PO DAILY 0RF acarbose 50 mg tablet 50 mg PO BID 0RF furosemide 20 mg tablet 40 mg PO BID 0RF potassium chloride 10 mEq tablet,ER particles/crystals 10 meq PO DAILY 0RF Referrals: Estela Maldonado MD [Primary Care Provider] -
--- NOTE | 2021-12-20 16:01 | DI.RAD.S_ITS ---
PROCEDURE: XR CHEST 1V INDICATIONS: Short of breath TECHNIQUE: One view of the chest was acquired. COMPARISON: [facility], , XR CHEST 2V, 08/24/2021, 10:40. [facility], CR, XR CHEST 2V, 01/07/2021, 11:38. FINDINGS: Surgical changes and devices: None. Lungs and pleura: Low lung volumes are noted. This causes a crowded appearance to the lung markings and limits evaluation. On this semiupright portable chest examination, no large pneumothorax or large pleural effusions are seen. No focal infiltrates are seen. Mediastinum: Mediastinal contours appear normal. Heart size is mildly to moderately enlarged. Bones and chest wall: No suspicious bony lesions. Age-appropriate bony degenerative changes are seen. Remote fracture of the right humeral head and neck noted. Overlying soft tissues appear unremarkable. IMPRESSION: Limited portable chest examination, without a significant cardiopulmonary abnormality identified. Dictated by: Silvino Miramontes M.D. on 12/20/2021 at 15:24 Approved by: Silvino Miramontes M.D. on 12/20/2021 at 15:25
[2021-12-20 16:12] LABS: Add Manual Diff / Slide Review NO; Basophils Absolute Auto 0 /uL (0-100); Basophils Percent Auto 0.1 % (0-2); Eosinophils Absolute Auto 100 /uL (0-450); Eosinophils Percent Auto 0.4 % (2-4); Hematocrit 29.3 % (41-53); Hemoglobin 9.5 g/dL (13.5-17.5); INR 1.3 (0.9-1.3); Lymphocytes Absolute Auto 600 /uL (1100-4500); Lymphocytes Percent Auto 3.3 % (25-40); Mean Corpuscular HGB Conc 32.5 % (30-36); Mean Corpuscular Volume 79.9 fL (80-100); Monocytes Absolute Auto 1800 /uL (0-900); Monocytes Percent Auto 9.3 % (3-14); Neutrophils Absolute Auto 16900 /uL (1500-7000); Neutrophils Percent Auto 86.9 % (50-75); Platelet Count 435 X10^3/uL (150-400); Prothrombin Time 14.5 SECONDS (10.1-12.7); Red Blood Cell Count 3.67 X10^6/uL (4.5-5.9); Red Cell Distribution Width 16.2 % (11.6-14.8); White Blood Cell Count 19.4 X10^3/uL (4.5-11.0)
[2021-12-20 16:19] LABS: Alanine Aminotransferase 17 IU/L (<50); Alkaline Phosphatase 100 U/L (38-126); Aspartate Aminotransferase 31 IU/L (17-59); BUN Creatinine Ratio 25.9 (6-22); Bilirubin Total 0.6 mg/dL (0.2-1.3); Blood Urea Nitrogen 73 mg/dL (9-20); Calcium 7.6 mg/dL (8.4-10.2); Carbon Dioxide 22 mmol/L (22-32); Chloride 95 mmol/L (98-107); Creatine Kinase 31 U/L (55-170); Estimated Glomerular Filt Rate 21.8 mL/min (>60); Globulin 3.1 g/dL (1.7-4.1); Glucose 216 mg/dL (80-110); HEMOLYSIS 16 (0-50); Potassium 4.1 mmol/L (3.4-5.1); Sodium 130 mmol/L (137-145); Total Protein 6.1 g/dL (6.3-8.2)
[2021-12-20 16:20] LABS: Lactate (Lactic Acid) 1.5 mmol/L (0.7-2.1)
[2021-12-20 16:31] LABS: NT-proBNP (BNP-Adult 18+) 19800 pg/mL (<450)
[2021-12-20 16:34] LABS: D Dimer 2762 ng/mL (<230)
[2021-12-20 16:36] LABS: Procalcitonin 2.26 ng/mL (<0.5)
--- NOTE | 2021-12-20 16:38 | DI.CT.S_ITS ---
PROCEDURE: CT CHEST ABD PEL WO CON INDICATIONS: Short of breath, weak, cough, severe kidney injury TECHNIQUE: After the administration of oral contrast, 5 mm thick sections acquired from the lung apices to the symphysis pubis. 5 mm thick coronal and sagittal reformats acquired, with additional 7 mm coronal MIP reformats through the lungs. For radiation dose reduction, the following was used: automated exposure control, adjustment of mA and/or kV according to patient size. COMPARISON: [facility], CT, CT LUMBAR SPINE WO CON, 06/10/2020, 10:11. [facility], CT, CT HEAD/BRAIN WO CON, 12/20/2021, 16:44. [facility], CR, XR CHEST 1V, 12/20/2021, 16:04. FINDINGS: Image quality: This examination is limited by involuntary motion artifact. CHEST: Lungs and pleura: No acute pulmonary opacities. There is a small right-sided pleural effusion seen. No pneumothorax. Central and peripheral airways are patent are normal in caliber. Mediastinum: Heart size is normal. There is a moderate pericardial effusion. At least moderate coronary artery calcification can be seen. No mediastinal adenopathy by CT size criteria. Thoracic aorta and central pulmonary arteries are normal in size. Esophagus is normal in caliber. There is a small hiatal hernia. Chest wall: No axillary or supraclavicular adenopathy by size criteria. Thyroid gland demonstrates no significant noncontrast abnormality . ABDOMEN: Solid organs: Liver is normal in size. Gallbladder demonstrates no significant abnormality . Pancreas is normal in contours. Spleen is normal in size. No adrenal nodules. Both kidneys are normal in size, without hydronephrosis or nephrolithiasis. A 3 cm water density cyst can be seen involving the lateral aspect of the left kidney. Generalized senescent perinephric cobwebbing can be seen Peritoneum and bowel: Small and large bowel loops are normal in caliber and wall thickness. No free fluid or air. A normal appendix is incidentally noted. Nodes and vessels: No retroperitoneal or mesenteric adenopathy by size criteria. Aorta and inferior vena cava are normal in size. Atherosclerotic calcification is noted. Miscellaneous: No ventral hernias. PELVIS: Genitourinary: Bladder wall thickness is normal. The prostate is prominent, measuring 5.6 cm transversely. Miscellaneous: No inguinal adenopathy. Mild bilateral fat containing inguinal hernias can be seen. Bones: Degenerative changes are seen throughout, which are overall worst involving the right shoulder. No suspicious bony lesions. No vertebral body compression fractures. Lumbosacral fixation hardware is seen. IMPRESSION: Moderate pericardial effusion. No significant kidney abnormality can be seen on these images. Age-appropriate perinephric cobwebbing can be seen. There is a simple appearing 3 cm cyst along the lateral aspect of the left kidney. Incidental note is made of: At least moderate coronary artery calcification Small right-sided pleural effusion Small hiatal hernia Normal appendix Lumbosacral fixation hardware Dictated by: Silvino Miramontes M.D. on 12/20/2021 at 16:14 Approved by: Silvino Miramontes M.D. on 12/20/2021 at 16:20
--- NOTE | 2021-12-20 16:38 | DI.CT.S_ITS ---
PROCEDURE: CT HEAD/BRAIN WO CON INDICATIONS: Short of breath, weak, cough, severe kidney injury TECHNIQUE: Noncontrast 4.5 mm thick angled axial sections acquired from the foramen magnum to the vertex, with coronal and sagittal reformats. For radiation dose reduction, the following was used: automated exposure control, adjustment of mA and/or kV according to patient size. COMPARISON: [facility], CT, CT CHEST ABD PEL WO CON, 12/20/2021, 16:44. FINDINGS: Image quality: Excellent. CSF spaces: Basal cisterns are patent. No extra-axial fluid collections. The ventricles are symmetric in size and shape. Brain: No intracranial bleeds or masses. There is cerebral volume loss for age, with resultant ventricular and sulcal prominence. There are periventricular and deep white matter chronic small vessel ischemic changes. There is intracranial internal carotid artery atherosclerosis. Skull and face: Calvarium and visualized facial bones appear intact, without suspicious lesions. Sinuses: Mild mucosal thickening is seen involving the visualized right maxillary sinus. The paranasal sinuses otherwise appear clear. No abnormal fluid is seen within the mastoid air cells. IMPRESSION: No acute intracranial process is seen. Note is made of age-appropriate brain parenchymal volume loss and chronic small vessel ischemic changes. Focal mild right maxillary sinus disease incidentally noted. Dictated by: Silvino Miramontes M.D. on 12/20/2021 at 16:13 Approved by: Silvino Miramontes M.D. on 12/20/2021 at 16:14
[2021-12-20 16:49] LABS: Appearance Urine UA SL CLOUDY; Bilirubin Urine UA NEGATIVE (NEGATIVE); Color Urine UA YELLOW; Glucose Urine UA NEGATIVE (Negative); Ketones Urine UA NEGATIVE (NEGATIVE); Leukocyte Esterase Urine UA 2+ (NEGATIVE); Nitrite Urine UA NEGATIVE (Negative); Occult Blood Urine UA 3+ (Negative); Protein Urine UA 2+ (Negative); Urobilinogen Urine UA 0.2 E.U./dL (0.2); pH Urine UA 5.5 (4.5-8.0)
[2021-12-20 16:53] LABS: Troponin I 0.224 ng/mL (0.01-0.034)
[2021-12-20] MEDS: PANTOPRAZOLE 40 MG VIAL IV (16:57)
[2021-12-20] MEDS: LACTATED RINGERS 615 ML IV (16:57)
[2021-12-20 17:02] LABS: COVID19 -Nasal RAPID Negative (Negative)
[2021-12-20 17:10] LABS: HCO3 VBG 23 mmol/L (23-28); Oxygen Saturation VBG 38 % (70-75); PCO2 VBG 35.9 mmHg (45-50); PO2 VBG 22 mmHg (35-45); Total CO2 VBG 24 mmol/L (24-29); pH VBG 7.41 (7.33-7.43)
[2021-12-20 17:18] LABS: Amorphous Sediment Urine 1+; Bacteria Urine Many (>30); Culture Indicated Urine Specimen Cultured; RBC Urine 10-30/HPF (0-5/HPF); Squamous Epithelial Cell Urine 1-5 /HPF (0-5/HPF); WBC Urine >100/HPF (0-5/HPF)
[2021-12-20] MEDS: cefTRIAXone 2,000 MG in SODIUM CHLORIDE 0.9% 100 ML 200 ML IV (18:50)
[2021-12-21 10:33] LABS: Acinetobacter baumannii Not Detected (Not Detect); E. coli Detected (Not Detect); Enterobacteriaceae species Detected (Not Detect); Enterococcus species Not Detected (Not Detect); KPC (carbapenem-resist gene) Not Detected (Not Detect); Listeria monocytogenes Not Detected (Not Detect); Staphylococcus species Not Detected (Not Detect); Streptococcus agalactiae (Gr B Not Detected (Not Detect); Streptococcus pneumonia Not Detected (Not Detect); Streptococcus pyogenes (Gr A) Not Detected (Not Detect); Streptococcus species Not Detected (Not Detect)
--- NOTE | 2021-12-22 09:27 | PC.NURSE ---
all micro results. blood cultures and urine cultures faxed to Dr. Christiana Chapman,(civil defense director) [facility] fax [phone]. I also spoke with Dr. Chapman and gave her results verbally,
== END 2021-12-20 19:30 | disposition short-term general hospital (02) ==
PROVIDERS: Emergency Provider Emergency Medicine; PCP Student in an Organized Health Care Education/Training Program
DX: A41.9 Sepsis, unspecified organism (principal); N39.0 Urinary tract infection, site not specified; N17.9 Acute kidney failure, unspecified; I50.9 Heart failure, unspecified; R77.8 Other specified abnormalities of plasma proteins; K92.2 Gastrointestinal hemorrhage, unspecified; I11.0 Hypertensive heart disease with heart failure; Z20.822 Contact with and (suspected) exposure to COVID-19
CPT/HCPCS: 36415; 70450; 71045; 71250; 74176; 80053; 81001; 82550; 82805; 83605; 83880; 84145; 84484; 85025; 85379; 85610; 86850; 86900; 86901; 87040; 87077; 87086; 87150; 87186; 87205; 87635; 93005; 93010; 96365; 96375; 99285; 99291; C9803; C9113; J0696

== ENCOUNTER → 2022-01-06 09:41 | Outpatient (CLI) | payer MEDICARE, OTHER, SELFPAY ==
[2022-01-06 12:37] LABS: COVID19 -Nasal RAPID Negative (Negative)
== END ==
PROVIDERS: PCP Student in an Organized Health Care Education/Training Program; Referring Provider Student in an Organized Health Care Education/Training Program; Visit Provider Student in an Organized Health Care Education/Training Program
DX: Z20.822 Contact with and (suspected) exposure to COVID-19 (principal)
CPT/HCPCS: 87635; C9803

== ENCOUNTER → 2022-02-02 11:55 | Outpatient (CLI) | payer MEDICARE, OTHER, SELFPAY ==
[2022-02-02 13:43] LABS: Hematocrit 22.7 % (41-53); Hemoglobin 7.4 g/dL (13.5-17.5)
[2022-02-02 13:51] LABS: BUN Creatinine Ratio 16.9 (6-22); Blood Urea Nitrogen 50 mg/dL (9-20); Calcium 8.9 mg/dL (8.4-10.2); Carbon Dioxide 17 mmol/L (22-32); Chloride 109 mmol/L (98-107); Estimated Glomerular Filt Rate 21 mL/min (>60); Glucose 194 mg/dL (80-110); HEMOLYSIS < 15 (0-50); Potassium 5.1 mmol/L (3.4-5.1); Sodium 140 mmol/L (137-145)
== END ==
PROVIDERS: PCP Student in an Organized Health Care Education/Training Program; Referring Provider Internal Medicine Nephrology; Visit Provider Internal Medicine Nephrology
DX: N17.9 Acute kidney failure, unspecified (principal)
CPT/HCPCS: 36415; 80048; 85014; 85018

== ENCOUNTER → 2022-02-10 14:19 | Outpatient (CLI) | payer MEDICARE, OTHER, SELFPAY ==
[2022-02-10 15:23] LABS: Hemoglobin 7.6 g/dL (13.5-17.5)
== END ==
PROVIDERS: PCP Student in an Organized Health Care Education/Training Program; Referring Provider Internal Medicine Nephrology; Visit Provider Internal Medicine Nephrology
DX: K22.11 Ulcer of esophagus with bleeding (principal)
CPT/HCPCS: 36415; 85014; 85018; 86850; 86900; 86901

== ENCOUNTER → 2022-03-04 08:04 | Outpatient (CLI) | payer MEDICARE, OTHER, SELFPAY ==
[2022-03-04 09:14] LABS: Hematocrit 30.4 % (41-53); Hemoglobin 10.1 g/dL (13.5-17.5); Mean Corpuscular HGB Conc 33.2 % (30-36); Mean Corpuscular Hemoglobin 27.5 PG (26-34); Mean Corpuscular Volume 82.7 fL (80-100); Platelet Count 342 X10^3/uL (150-400); Red Blood Cell Count 3.67 X10^6/uL (4.5-5.9); Red Cell Distribution Width 17.3 % (11.6-14.8); White Blood Cell Count 7.8 X10^3/uL (4.5-11.0)
[2022-03-04 09:37] LABS: HEMOLYSIS < 15 (0-50); Iron 51 ug/dL (49-181)
[2022-03-04 09:40] LABS: BUN Creatinine Ratio 21.2 (6-22); Blood Urea Nitrogen 65 mg/dL (9-20); Calcium 8.8 mg/dL (8.4-10.2); Carbon Dioxide 24 mmol/L (22-32); Chloride 104 mmol/L (98-107); Estimated Glomerular Filt Rate 20 mL/min (>60); Glucose 189 mg/dL (80-110); HEMOLYSIS < 15 (0-50); Potassium 4.5 mmol/L (3.4-5.1); Sodium 139 mmol/L (137-145)
[2022-03-04 09:48] LABS: Percent Iron Saturation 14 % (20-50); Total Iron Binding Capacity 358 ug/dL (261-462); Transferrin 289 mg/dL (206-381)
[2022-03-04 10:35] LABS: Creatinine Urine Random 35.5 mg/dL
[2022-03-04 10:40] LABS: Microalbumin Urine Random 7.1 mg/dL (0-1.6)
== END ==
PROVIDERS: PCP Student in an Organized Health Care Education/Training Program; Referring Provider Internal Medicine Nephrology; Visit Provider Internal Medicine Nephrology
DX: N17.9 Acute kidney failure, unspecified (principal); E11.22 Type 2 diabetes mellitus with diabetic chronic kidney disease; I10 Essential (primary) hypertension; D50.0 Iron deficiency anemia secondary to blood loss (chronic); N18.32 Chronic kidney disease, stage 3b
CPT/HCPCS: 36415; 80048; 82043; 82570; 83540; 83550; 85027

== ENCOUNTER → 2022-04-08 08:15 | Outpatient (CLI) | payer MEDICARE, OTHER, SELFPAY ==
[2022-04-08 08:53] LABS: Hematocrit 29.3 % (41-53); Hemoglobin 9.7 g/dL (13.5-17.5)
[2022-04-08 09:46] LABS: BUN Creatinine Ratio 22.4 (6-22); Blood Urea Nitrogen 75 mg/dL (9-20); Calcium 8.6 mg/dL (8.4-10.2); Carbon Dioxide 23 mmol/L (22-32); Chloride 106 mmol/L (98-107); Estimated Glomerular Filt Rate 18 mL/min (>60); Glucose 183 mg/dL (80-110); HEMOLYSIS < 15 (0-50); Potassium 3.7 mmol/L (3.4-5.1); Sodium 142 mmol/L (137-145)
[2022-04-08 10:20] LABS: Prostate Specific Antigen 4.84 ng/mL (0.10-4.00)
== END ==
PROVIDERS: Urology; PCP Student in an Organized Health Care Education/Training Program; Referring Provider Internal Medicine Nephrology; Visit Provider Internal Medicine Nephrology
DX: R97.20 Elevated prostate specific antigen [PSA] (principal); N17.9 Acute kidney failure, unspecified; E11.22 Type 2 diabetes mellitus with diabetic chronic kidney disease; N18.32 Chronic kidney disease, stage 3b; I10 Essential (primary) hypertension; D50.0 Iron deficiency anemia secondary to blood loss (chronic)
CPT/HCPCS: 36415; 80048; 84153; 85014; 85018

== ENCOUNTER → 2022-04-15 08:16 | Outpatient (CLI) | payer MEDICARE, OTHER, SELFPAY | PROVIDERS: PCP Student in an Organized Health Care Education/Training Program; Visit Provider Urology | DX: N40.1 Benign prostatic hyperplasia with lower urinary tract symptoms (principal); R33.9 Retention of urine, unspecified; R97.20 Elevated prostate specific antigen [PSA]; R82.81 Pyuria; R31.29 Other microscopic hematuria; N28.9 Disorder of kidney and ureter, unspecified | CPT/HCPCS: 51798; 81002; 87077; 87086; 87186; 99214 ==

== ENCOUNTER → 2022-04-22 08:51 | Outpatient (CLI) | payer MEDICARE, OTHER, SELFPAY ==
[2022-04-22 10:15] LABS: BUN Creatinine Ratio 16.7 (6-22); Blood Urea Nitrogen 66 mg/dL (9-20); Calcium 8.3 mg/dL (8.4-10.2); Carbon Dioxide 20 mmol/L (22-32); Chloride 102 mmol/L (98-107); Estimated Glomerular Filt Rate 15 mL/min (>60); Glucose 222 mg/dL (80-110); HEMOLYSIS < 15 (0-50); Potassium 4.4 mmol/L (3.4-5.1); Sodium 134 mmol/L (137-145)
== END ==
PROVIDERS: PCP Student in an Organized Health Care Education/Training Program; Referring Provider Internal Medicine Nephrology; Visit Provider Internal Medicine Nephrology
DX: N17.9 Acute kidney failure, unspecified (principal)
CPT/HCPCS: 36415; 80048

== ENCOUNTER → 2022-05-04 08:26 | Outpatient (CLI) | payer MEDICARE, OTHER, SELFPAY ==
[2022-05-04 11:33] LABS: Prostate Specific Antigen 5.76 ng/mL (0.10-4.00)
[2022-05-07 05:54] LABS: PSA Free % 22.2 % (.); PSA, Total 6.5 ng/mL (0.0-4.0)
== END ==
PROVIDERS: PCP Student in an Organized Health Care Education/Training Program; Referring Provider Urology; Visit Provider Urology
DX: R97.20 Elevated prostate specific antigen [PSA] (principal)
CPT/HCPCS: 36415; 84153; 84154

== ENCOUNTER → 2022-05-12 07:57 | Outpatient (CLI) | payer MEDICARE, OTHER, SELFPAY ==
--- NOTE | 2022-05-12 08:04 | DI.CT.S_ITS ---
PROCEDURE: CT LUMBAR SPINE WO CON INDICATIONS: S/P LUMBAR FUSION/LUMBAR STENOSIS TECHNIQUE: Noncontrast 3 mm thick sections acquired from the T12 level to the sacrum. Sagittal and coronal reformats were constructed. For radiation dose reduction, the following was used: automated exposure control. COMPARISON: [facility], CT, CT LUMBAR SPINE WO CON, 01/24/2018, 8:17. [facility], CT, CT LUMBAR SPINE WO CON, 06/10/2020, 10:11. [facility], CT, CT CHEST ABDOMEN PELVIS WITHOUT CONTRAST, 12/24/2021, 13:29. [facility] [place], CR, XR LUMBAR SPINE 2 OR 3 VIEWS, 05/26/2021, 15:50. [facility], CT, CT CHEST ABD PEL WO CON, 12/20/2021, 16:44. FINDINGS: Image quality: Excellent. Bones: There is normal bony alignment. No acute vertebral body compression fractures. No suspicious lytic or blastic bony lesions. No pars defects. Postoperative changes are seen, with bilateral pedicle screws at the L2 through L5 levels. The screws appear well placed. Vertical fixation rods are seen. There is a disc spacer seen at the L4-L5 level. There is lucency seen adjacent to both L2 screws. No additional findings of hardware failure or hardware loosening are seen. There has been removal of portions of the posterior elements. T12-L1: There is moderate loss of disc height. Bridging endplate osteophytes are seen. Mild generalized disc bulge is seen. No significant neural foraminal or central canal narrowing can be seen. L1-L2: Mild loss of disc height is seen. Bridging endplate osteophytes are seen. Mild to moderate disc bulge is seen. Mild facet joint hypertrophy is seen. Moderate bilateral neural foraminal narrowing is seen. Mild central canal narrowing is seen. L2-L3: At least moderate loss disc height is seen. Generalized endplate irregularity is seen. Partially bridging anterior osteophytes are seen. Moderate bilateral neural foraminal narrowing is seen. No central canal narrowing is seen. L3-L4: Moderate to severe loss disc height is seen on the right side. Endplate irregularity and sclerosis can be seen. Moderate generalized disc bulge is seen. There is moderate left-sided and no significant right-sided neural foraminal narrowing. The central canal is widely patent. L4-L5: Mild to moderate disc bulge is seen. Moderate bilateral neural foraminal narrowing is seen. No central canal narrowing is seen. L5-S1: The disc height is relatively well preserved. Vacuum disc phenomenon is seen at this level. Moderate generalized disc bulge is seen. Moderate facet joint hypertrophy is seen. Moderate to severe bilateral neural foraminal narrowing can be seen. Moderate central canal narrowing is seen. Soft tissues: No retroperitoneal masses or hematomas. Visualized aorta is normal in caliber. IMPRESSION: L2 through L5 postoperative hardware, with mild lucency seen adjacent to the L2 screws, which is consistent with loosening change. Moderate central canal narrowing is seen at L5-S1, with mild central canal narrowing at L1-L2. The previously seen central canal narrowing at L2-L3 and L3-L4 has resolved. Dictated by: Silvino Miramontes M.D. on 05/12/2022 at 10:28 Approved by: Silvino Miramontes M.D. on 05/12/2022 at 10:34
== END ==
PROVIDERS: PCP Student in an Organized Health Care Education/Training Program; Referring Provider Physician Assistant Surgical; Visit Provider Physician Assistant Surgical
DX: Z98.1 Arthrodesis status (principal); M48.061 Spinal stenosis, lumbar region without neurogenic claudication; M54.50 Low back pain, unspecified
CPT/HCPCS: 72131

== ENCOUNTER → 2022-05-12 08:17 | Outpatient (CLI) | payer MEDICARE, OTHER, SELFPAY ==
[2022-05-12 10:54] LABS: Appearance Urine UA CLOUDY; Bilirubin Urine UA NEGATIVE (NEGATIVE); Color Urine UA YELLOW; Glucose Urine UA NEGATIVE (Negative); Ketones Urine UA NEGATIVE (NEGATIVE); Leukocyte Esterase Urine UA 2+ (NEGATIVE); Nitrite Urine UA NEGATIVE (Negative); Occult Blood Urine UA 2+ (Negative); Protein Urine UA 1+ (Negative); Urobilinogen Urine UA 0.2 E.U./dL (0.2)
[2022-05-12 10:59] LABS: Hematocrit 29.2 % (41-53); Hemoglobin 9.6 g/dL (13.5-17.5)
[2022-05-12 11:21] LABS: RBC Urine 1-5/HPF (0-5/HPF); WBC Urine >100/HPF (0-5/HPF)
[2022-05-12 11:22] LABS: Bacteria Urine Many (>30); Culture Indicated Urine Specimen Cultured; Squamous Epithelial Cell Urine 1-5 /HPF (0-5/HPF)
[2022-05-12 11:24] LABS: HEMOLYSIS < 15 (0-50); Iron 40 ug/dL (49-181)
[2022-05-12 11:26] LABS: Creatinine Urine Random 82.9 mg/dL
[2022-05-12 11:30] LABS: Microalbumi Creatinin Ratio Ur 186.9 ug/mg CR (<30); Microalbumin Urine Random 15.5 mg/dL (0-1.6)
[2022-05-12 11:34] LABS: BUN Creatinine Ratio 20.6 (6-22); Blood Urea Nitrogen 62 mg/dL (9-20); Calcium 8.8 mg/dL (8.4-10.2); Carbon Dioxide 21 mmol/L (22-32); Chloride 110 mmol/L (98-107); Estimated Glomerular Filt Rate 20 mL/min (>60); Glucose 178 mg/dL (80-110); HEMOLYSIS < 15 (0-50); Phosphorous 3.6 mg/dL (2.3-3.7); Potassium 4.5 mmol/L (3.4-5.1); Sodium 139 mmol/L (137-145)
[2022-05-12 11:36] LABS: Percent Iron Saturation 11 % (20-50); Total Iron Binding Capacity 363 ug/dL (261-462); Transferrin 260 mg/dL (206-381)
[2022-05-12 11:42] LABS: Vitamin D 25 Hydroxy (D3) 106 ng/mL (30.0-100.0)
[2022-05-13 07:37] LABS: Parathyroid Hormone Int 60 pg/mL (15-65)
== END ==
PROVIDERS: PCP Student in an Organized Health Care Education/Training Program; Referring Provider Internal Medicine Nephrology; Visit Provider Internal Medicine Nephrology
DX: N18.32 Chronic kidney disease, stage 3b (principal); N17.9 Acute kidney failure, unspecified; E11.22 Type 2 diabetes mellitus with diabetic chronic kidney disease; I10 Essential (primary) hypertension; D50.0 Iron deficiency anemia secondary to blood loss (chronic); N25.81 Secondary hyperparathyroidism of renal origin; N30.00 Acute cystitis without hematuria
CPT/HCPCS: 36415; 80048; 81001; 82043; 82306; 82570; 83540; 83550; 83970; 84100; 85014; 85018; 87077; 87086; 87186

== ENCOUNTER → 2022-05-18 07:50 | Outpatient (CLI) | payer MEDICARE, OTHER, SELFPAY ==
--- NOTE | 2022-05-18 07:52 | DI.US.S_ITS ---
PROCEDURE: US SCROTUM INDICATIONS: Right hemiscrotal enlargement TECHNIQUE: Real-time scanning was performed of the scrotum and testicles, with image documentation. Color and pulse Doppler interrogation was performed of both testicles. COMPARISON: None. FINDINGS: Right: Testicle is normal in size at 4 x 2.1 x 3.2 cm, and homogenous in echotexture. Epididymis is normal in overall size and morphology. small to moderate right hydrocele is seen. Mildly thickened right scrotal wall is also noted. No varicoceles. Left: Testicle is normal in size at 4 x 2.2 x 2.8 cm, and homogeneous in echotexture. Epididymis is normal in overall size and morphology. 7 x 7 x 7 mm simple cyst is seen in left testes. No hydrocele or varicoceles. Overlying scrotal skin is normal in thickness. Doppler: Color and pulse Doppler demonstrate increased arterial flow within right testes. Normal arterial venous flow is seen in left testes. IMPRESSION: 1. Finding is concerning for right orchitis. No discrete testicular lesion. Mild right scrotal wall thickening with moderate hydrocele. 2. Subcentimeter cyst in left testes. No testicular torsion. No left-sided hydrocele. Dictated by: Blayne Hassan M.D. on 05/18/2022 at 9:36 Approved by: Blayne Hassan M.D. on 05/18/2022 at 9:38
== END ==
PROVIDERS: PCP Student in an Organized Health Care Education/Training Program; Referring Provider Urology; Visit Provider Urology
DX: N50.89 Other specified disorders of the male genital organs (principal); N43.3 Hydrocele, unspecified; N44.2 Benign cyst of testis
CPT/HCPCS: 76870

== ENCOUNTER → 2022-06-22 08:00 | Outpatient (CLI) | payer MEDICARE, OTHER, SELFPAY | PROVIDERS: PCP Student in an Organized Health Care Education/Training Program; Visit Provider Urology | DX: N40.1 Benign prostatic hyperplasia with lower urinary tract symptoms (principal); R33.9 Retention of urine, unspecified; R97.20 Elevated prostate specific antigen [PSA]; N52.01 Erectile dysfunction due to arterial insufficiency; N45.2 Orchitis; R31.9 Hematuria, unspecified; R82.81 Pyuria | CPT/HCPCS: 51798; 81002; 87077; 87086; 87186; 99214 ==

== ENCOUNTER → 2022-07-07 08:39 | Outpatient (CLI) | payer MEDICARE, OTHER, SELFPAY ==
[2022-07-07 10:01] LABS: NT-proBNP (BNP-Adult 18+) 14300 pg/mL (<450)
== END ==
PROVIDERS: PCP Family Medicine; Referring Provider Nurse Practitioner Family; Visit Provider Nurse Practitioner Family
DX: I50.31 Acute diastolic (congestive) heart failure (principal); I51.89 Other ill-defined heart diseases
CPT/HCPCS: 36415; 83880

== ENCOUNTER → 2022-07-21 10:19 | Outpatient (CLI) | payer MEDICARE, OTHER, SELFPAY ==
[2022-07-21 12:33] LABS: BUN Creatinine Ratio 18.9 (6-22); Blood Urea Nitrogen 61 mg/dL (9-20); Calcium 8.8 mg/dL (8.4-10.2); Carbon Dioxide 20 mmol/L (22-32); Chloride 107 mmol/L (98-107); Estimated Glomerular Filt Rate 19 mL/min (>60); Glucose 142 mg/dL (80-110); HEMOLYSIS < 15 (0-50); Potassium 4.8 mmol/L (3.4-5.1); Sodium 140 mmol/L (137-145)
[2022-07-21 13:04] LABS: Prostate Specific Antigen 4.58 ng/mL (0.10-4.00)
[2022-07-21 13:38] LABS: Appearance Urine UA CLEAR; Bilirubin Urine UA NEGATIVE (NEGATIVE); Color Urine UA YELLOW; Glucose Urine UA NEGATIVE (Negative); Ketones Urine UA NEGATIVE (NEGATIVE); Leukocyte Esterase Urine UA NEGATIVE (NEGATIVE); Nitrite Urine UA NEGATIVE (Negative); Occult Blood Urine UA NEGATIVE (Negative); Protein Urine UA NEGATIVE (Negative); Urobilinogen Urine UA 0.2 E.U./dL (0.2)
[2022-07-21 13:52] LABS: Bacteria Urine None Seen; Culture Indicated Urine Cult Not Indicated; RBC Urine None Seen (0-5/HPF); Urine Comments Microscopic Normal; WBC Urine None Seen (0-5/HPF)
== END ==
PROVIDERS: Urology; PCP Family Medicine; Referring Provider Internal Medicine Nephrology; Visit Provider Internal Medicine Nephrology
DX: R97.20 Elevated prostate specific antigen [PSA] (principal); N17.9 Acute kidney failure, unspecified; N30.00 Acute cystitis without hematuria
CPT/HCPCS: 36415; 80048; 81001; 84153

== ENCOUNTER 2022-07-26 17:18 | Emergency (ER) | payer MEDICARE, OTHER, SELFPAY ==
[2022-07-26 17:31] VITALS: BP 163/79; PULSE 94; RESP 22; TEMP 36.7; O2SAT 99
--- NOTE | 2022-07-26 17:42 | DI.RAD.S_ITS ---
PROCEDURE: XR ABDOMEN MIN 2V INDICATIONS: urinary retention, abd distended, no bm TECHNIQUE: 2 views of the abdomen were acquired. COMPARISON: [facility], CT, CT LUMBAR SPINE WO CON, 05/12/2022, 8:07. FINDINGS: Surgical changes and devices: Lumbar spine fixation hardware. Bowel: No pneumoperitoneum. Prominent stool in the right colon. Scattered small bowel gas. Soft tissues: No masses; visualized solid organ contours appear normal in size. No suspicious abdominal calcifications. Bones: No suspicious bony abnormalities. Moderate bilateral hip DJD. IMPRESSION: Prominent stool in the colon is seen. This could be due to constipation. If clinically indicated consider CT abdomen pelvis with IV contrast for further evaluation. Dictated by: Chuy Newberry M.D. on 07/26/2022 at 18:28 Approved by: Chuy Newberry M.D. on 07/26/2022 at 18:30
[2022-07-26] MEDS: LIDOCAINE 2% (GLYDO) 6 ML GEL TOP (17:55)
[2022-07-26 18:25] LABS: Add Manual Diff / Slide Review NO; Basophils Absolute Auto 100 /uL (0-100); Basophils Percent Auto 1.3 % (0-2); Eosinophils Absolute Auto 200 /uL (0-450); Eosinophils Percent Auto 2.2 % (2-4); Hematocrit 33.7 % (41-53); Hemoglobin 11.3 g/dL (13.5-17.5); Lymphocytes Absolute Auto 600 /uL (1100-4500); Lymphocytes Percent Auto 7.8 % (25-40); Mean Corpuscular HGB Conc 33.6 % (30-36); Mean Corpuscular Hemoglobin 28.2 PG (26-34); Monocytes Absolute Auto 900 /uL (0-900); Monocytes Percent Auto 11.6 % (3-14); Neutrophils Absolute Auto 5900 /uL (1500-7000); Neutrophils Percent Auto 77.1 % (50-75); Platelet Count 229 X10^3/uL (150-400); Red Blood Cell Count 4.01 X10^6/uL (4.5-5.9); Red Cell Distribution Width 18.6 % (11.6-14.8); White Blood Cell Count 7.7 X10^3/uL (4.5-11.0)
[2022-07-26 18:37] LABS: Alanine Aminotransferase 39 IU/L (<50); Albumin 4.4 g/dL (3.5-5.0); Albumin Globulin Ratio 1.2 (1.0-2.8); Alkaline Phosphatase 140 U/L (38-126); Aspartate Aminotransferase 43 IU/L (17-59); BUN Creatinine Ratio 19.2 (6-22); Bilirubin Total 0.9 mg/dL (0.2-1.3); Blood Urea Nitrogen 62 mg/dL (9-20); Calcium 9.2 mg/dL (8.4-10.2); Carbon Dioxide 23 mmol/L (22-32); Chloride 103 mmol/L (98-107); Estimated Glomerular Filt Rate 19 mL/min (>60); Globulin 3.8 g/dL (1.7-4.1); Glucose 161 mg/dL (80-110); HEMOLYSIS < 15 (0-50); Lipase 460 U/L (23-300); Potassium 3.9 mmol/L (3.4-5.1); Sodium 139 mmol/L (137-145); Total Protein 8.2 g/dL (6.3-8.2)
[2022-07-26 19:07] LABS: Appearance Urine UA CLEAR; Bilirubin Urine UA NEGATIVE (NEGATIVE); Color Urine UA YELLOW; Glucose Urine UA TRACE g/dL (Negative); Ketones Urine UA NEGATIVE (NEGATIVE); Leukocyte Esterase Urine UA NEGATIVE (NEGATIVE); Nitrite Urine UA NEGATIVE (Negative); Occult Blood Urine UA 1+ (Negative); Protein Urine UA NEGATIVE (Negative); Specific Gravity Urine UA <=1.005 (1.000-1.035); Urobilinogen Urine UA 0.2 E.U./dL (0.2)
[2022-07-26 19:30] LABS: RBC Urine None Seen (0-5/HPF); WBC Urine None Seen (0-5/HPF)
[2022-07-26 19:31] LABS: Bacteria Urine None Seen; Culture Indicated Urine Cult Not Indicated
--- NOTE | 2022-07-26 19:36 | ED.GENADULT ---
HPI - General Adult General Chief complaint: Abdominal Pain Stated complaint: Unable to urinate, No BM Time Seen by Provider: 07/26/22 17:42 Source: patient Mode of arrival: Ambulatory History of Present Illness HPI narrative: 77-year-old male with a history of constipation and also history of urinary retention. He has required a Serrano catheter in the past. He does see urology. States he does have an enlarged prostate. Has been on Flomax in the past but due to side effects this medication was switched to Cialis. He states that it does work for him. He is not been able to have a bowel movement for the past couple days. He did take MiraLax today. He also has not urinated for approximately 24 hours. No fevers. No vomiting. Prior to my evaluation the patient received an indwelling Serrano catheter after having a bladder scan showing greater than 700 cc of urine. Patient states that after placement of the Serrano catheter his abdominal pain has resolved. Related Data Home Medications Medication Instructions Recorded Confirmed atorvastatin 20 mg tablet 20 mg PO BEDTIME 03/25/21 06/22/22 clopidogrel 75 mg tablet (Plavix) 75 mg PO DAILY 06/09/21 06/22/22 torsemide 50 mg PO .prn Fluid retention 01/14/22 06/22/22 dulaglutide [Trulicity] SUBCUT 04/15/22 06/22/22 Previous Rx's Medication Instructions Recorded tadalafil 5 mg tablet (Cialis) 5 mg PO DAILY #90 tabs 06/09/21 ciprofloxacin HCl 500 mg tablet 500 mg PO BID #30 tabs 06/01/22 (Cipro) sulfamethoxazole 800 1 tab PO BID #30 tabs 06/24/22 mg-trimethoprim 160 mg tablet (Bactrim DS) tamsulosin 0.4 mg capsule See Rx Instructions .Route 07/14/22 .COMPLEX #180 caps Allergies Allergy/AdvReac Type Severity Reaction Status Date / Time No Known Drug Allergies Allergy Verified 06/22/22 07:58 Review of Systems Constitutional Constitutional: Reports system reviewed and no additional complaints, except as documented Gastrointestinal Gastrointestinal: Reports system reviewed and no additional complaints, except as documented Genitourinary Genitourinary: Reports system reviewed and no additional complaints, except as documented Musculoskeletal Musculoskeletal: Reports system reviewed and no additional complaints, except as documented Hematologic/Lymphatic On Anticoagulants: No Patient History Medical History BPH loc w urin obs/LUTS Broken ankle Broken shoulder Broken wrist Chronic anticoagulation Diabetes Elevated PSA Enlarged prostate Erectile dysfunction due to arterial insufficiency HTN (hypertension) Hyperlipemia Incomplete emptying of bladder Surgical History H/O heart artery stent H/O right wrist surgery History of arthroplasty of right ankle Previous back surgery Family History Father Cancer Mother Cancer Sister Cancer Social History marital status: unmarried,single household members: none education level: high school Previous occupational history: retired Smoking Status: Former smoker Smoking Status: Former smoker Substance Use Type: does not use Exam Initial Vital Signs Initial Vital Signs: Vital Signs Temperature 98.1 F 07/26/22 17:31 Pulse Rate 94 H 07/26/22 17:31 Respiratory Rate 22 07/26/22 17:31 Blood Pressure 163/79 H 07/26/22 17:31 Pulse Oximetry 99 07/26/22 17:31 Oxygen Delivery Method 07/26/22 17:31 Const General: cooperative, comfortable and No ill appearing HENMT Head: normal to inspection and normocephalic Resp Effort & Inspection: normal respiratory effort Cardio Rate: regular rate GI Inspection: normal to inspection and non-distended Palpation: soft and No tender Other: Serrano catheter in place Skin General: no rashes or lesions noted Neuro General: patient alert, patient awake and moves all extremities Extrem General: normal to inspection and capillary refill normal Psych Appearance: grossly normal Course Orders Ordered: ED Orders 07/26/22 17:42 XR abdomen min 2V Stat 07/26/22 18:15 CBC Auto Diff [Complete Blood Count AUTO DIFF] Stat CMP [Comprehensive Metabolic Panel] Stat Lipase Stat UA Complete [Urinalysis and Microscopic] Stat Discontinued Medications Lidocaine HCl (Lidocaine 2% (Glydo) 6 Ml Gel) 6 ml TOP NOW ONE Stop: 07/26/22 17:44 Last Admin: 07/26/22 17:55 Dose: 6 ml Documented By: [facility] Vital Signs Vital signs: Vital Signs - 8 hr 07/26/22 19:56 Pulse Rate 78 Respiratory Rate 18 Blood Pressure 131/68 Pulse Oximetry 98 Medical Decision Making Lab Data Lab results reviewed: Yes I reviewed the patient's lab results. Result diagrams: 07/26/22 18:15 07/26/22 18:15 Labs: Lab Results 07/26/22 07/26/22 07/26/22 Range/Units 18:15 18:15 18:15 WBC 7.7 (4.5-11.0) X10^3/uL RBC 4.01 L (4.5-5.9) X10^6/uL Hgb 11.3 L (13.5-17.5) g/dL Hct 33.7 L (41-53) % MCV 84.0 (80-100) fL MCH 28.2 (26-34) PG MCHC 33.6 (30-36) % RDW 18.6 H (11.6-14.8) % Plt Count 229 (150-400) X10^3/uL Neut % (Auto) 77.1 H (50-75) % Lymph % (Auto) 7.8 L (25-40) % [place] % (Auto) 11.6 (3-14) % Eos % (Auto) 2.2 (2-4) % Baso % (Auto) 1.3 (0-2) % Neut # (Auto) 5900 (7753-8718) /uL Lymph # (Auto) 600 L (5868-0101) /uL [place] # (Auto) 900 (0-900) /uL Eos # (Auto) 200 (0-450) /uL Baso # (Auto) 100 (0-100) /uL Sodium 139 (137-145) mmol/L Potassium 3.9 (3.4-5.1) mmol/L Chloride 103 (98-107) mmol/L Carbon Dioxide 23 (22-32) mmol/L BUN 62 H (9-20) mg/dL Creatinine 3.23 H (0.66-1.25) mg/dL Estimated GFR 19 L (>60) mL/min BUN/Creatinine Ratio 19.2 (6-22) Glucose 161 H (80-110) mg/dL Calcium 9.2 (8.4-10.2) mg/dL Total Bilirubin 0.9 (0.2-1.3) mg/dL AST 43 (17-59) IU/L ALT 39 (<50) IU/L Alkaline Phosphatase 140 H (38-126) U/L Total Protein 8.2 (6.3-8.2) g/dL Albumin 4.4 (3.5-5.0) g/dL Globulin 3.8 (1.7-4.1) g/dL Albumin/Globulin Ratio 1.2 (1.0-2.8) Lipase 460 H (23-300) U/L Urine Color Yellow Urine Appearance Clear Urine pH 5.0 (4.5-8.0) Ur Specific [place] <=1.005 (1.000-1.035) Urine Protein Negative (Negative) Urine Glucose (UA) Trace H (Negative) g/dL Urine Ketones Negative (NEGATIVE) Urine Occult Blood 1+ H (Negative) Urine Nitrate Negative (Negative) Urine Bilirubin Negative (NEGATIVE) Urine Urobilinogen 0.2 (0.2) E.U./dL Ur Leukocyte Esterase Negative (NEGATIVE) Urine RBC None seen (0-5/HPF) Urine WBC None seen (0-5/HPF) Urine Bacteria None seen (None) Ur Culture Indicated? Cult not indicated Imaging Data Abdominal x-ray: Radiologist's Impression: [address] [id number] XRay Report Signed Patient: Carlos Schneider MR#: [id number] : 1945 Acct:[id number] Age/Sex: 77 / M Date of Service: 07/26/22 Loc: ED Accession Number: [id number] ?? Procedure: XR abdomen min 2V Ordering Provider: Annalee Gore D.O. PROCEDURE:? XR ABDOMEN MIN 2V ? INDICATIONS:? urinary retention, abd distended, no bm ? TECHNIQUE:? 2 views of the abdomen were acquired.? ? COMPARISON:? [facility], CT, CT LUMBAR SPINE WO CON, 05/12/2022, 8:07. ? FINDINGS:? Surgical changes and devices:? Lumbar spine fixation hardware.? ? Bowel:? No pneumoperitoneum.? Prominent stool in the right colon.? Scattered small bowel gas. ? Soft tissues:? No masses; visualized solid organ contours appear normal in size.? No suspicious abdominal calcifications.? ? Bones:? No suspicious bony abnormalities.? Moderate bilateral hip DJD.? ? IMPRESSION:? Prominent stool in the colon is seen.? This could be due to constipation.? ? If clinically indicated consider CT abdomen pelvis with IV contrast for further evaluation. ? ? Dictated by: Chuy Newberry M.D. on 07/26/2022 at 18:28 ? ? Approved by: Chuy Newberry M.D. on 07/26/2022 at 18:30? MDM Narrative Medical decision making narrative: Serrano catheter was placed with return of approximately 700 cc of clear urine. After the catheter was placed patient states that all of his abdominal discomfort has completely resolved. States he feels much better. We discussed how urinary retention can cause constipation. We did discuss his abdominal x-ray showing stool in the colon. Given the resolution of symptoms and a very strong cause of his abdominal pain feel that we can hold on a CT scan of his abdomen for now. He will continue all of his medications. He will contact his urologist for follow-up. We will leave the Serrano catheter in place until that follow-up. We did discuss the use of laxatives at home given the continued concern for constipation. He did take MiraLax earlier today. He was given return precautions. He expressed understanding and agreement. Discharge Plan Departure Patient Disposition: Home Clinical Impression: Acute urinary retention, Constipation Instructions: How to Care for Your Serrano Catheter -- Male, DI for Urinary Retention in Men Activity Restrictions/Additional Instructions: I recommend that you continue to take all of your medications as directed. Tomorrow contact your urologist office for a follow-up. Return to the emergency department for any new or worsening symptoms. Prescriptions: No Action sulfamethoxazole-trimethoprim [Bactrim DS] 800-160 mg tablet 1 tab PO BID Qty: 30 0RF tamsulosin 0.4 mg capsule See Rx Instructions .ROUTE .COMPLEX Qty: 180 3RF Dose Instruction: TAKE ONE CAPSULE BY MOUTH TWICE DAILY. Rx Instructions: TAKE ONE CAPSULE BY MOUTH TWICE DAILY. clopidogrel [Plavix] 75 mg tablet 75 mg PO DAILY tadalafil [Cialis] 5 mg tablet 5 mg PO DAILY Qty: 90 3RF torsemide 50 mg PO .prn Rx Instructions: Weight based parameters dulaglutide [Trulicity] SUBCUT ciprofloxacin HCl [Cipro] 500 mg tablet 500 mg PO BID Qty: 30 0RF atorvastatin 20 mg tablet 20 mg PO BEDTIME Referrals: Suleiman Whatley MD [Physician] - Carlos Kaba MD [Primary Care Provider] - Visit Report Forms: Patient Portal/API
[2022-07-26 19:56] VITALS: BP 131/68; PULSE 78; RESP 18; O2SAT 98
--- NOTE | 2022-07-26 19:58 | PC.NURSE ---
inserted by SPARKLE Edwards prior to 1899, changed to leg bag upon dc with inst given and verbal acknowledgement received
== END 2022-07-26 19:59 | disposition home or self-care (01) ==
PROVIDERS: Emergency Medicine; Emergency Provider Emergency Medicine; PCP Family Medicine
DX: R33.8 Other retention of urine (principal); K59.00 Constipation, unspecified; N40.0 Benign prostatic hyperplasia without lower urinary tract symptoms
CPT/HCPCS: 36415; 51798; 74019; 80053; 81001; 83690; 85025; 99284

== ENCOUNTER 2022-07-28 03:45 | Emergency (ER) | payer MEDICARE, OTHER, SELFPAY ==
[2022-07-28 03:54] VITALS: BP 180/80; PULSE 80; RESP 18; TEMP 36.6; O2SAT 98
--- NOTE | 2022-07-28 04:03 | PC.NURSE ---
Pt denies pain, states able to urinate around catheter & doesn't believe he needs catheter any longer.
--- NOTE | 2022-07-28 04:17 | ED.MALEGU ---
HPI - Male Genitourinary General Chief complaint: Urogenital-Male Stated complaint: catheter leaking Time Seen by Provider: 07/28/22 04:00 Source: patient Mode of arrival: Ambulatory History of Present Illness HPI Narrative: Mr. Schneider is a 77-year-old gentleman with a urinary catheter problem. He was hospitalized for sepsis some many months ago and has been ?working to get his hemoglobin up? since then. He had come to the ER just about a few days ago and have a catheter placed because of urinary retention. The placement of the catheter immediately relieved his symptoms and he was doing well since then. Had already arranged an appointment to see Dr. Whatley and follow-up to have the catheter removed. However, overnight tonight, he felt like he had to urinate and went to the bathroom and urinated a fair amount around the catheter. He got in the shower to try to empty the rest of his bladder which she could easily do. He is confident that he can urinate now and would like the catheter removed. He has no symptoms. Specifically, he has no fever, chills, nausea, vomiting, abdominal pain. Related Data Home Medications Medication Instructions Recorded Confirmed atorvastatin 20 mg tablet 20 mg PO BEDTIME 03/25/21 06/22/22 clopidogrel 75 mg tablet (Plavix) 75 mg PO DAILY 06/09/21 06/22/22 torsemide 50 mg PO .prn Fluid retention 01/14/22 06/22/22 dulaglutide [Trulicity] SUBCUT 04/15/22 06/22/22 Previous Rx's Medication Instructions Recorded tadalafil 5 mg tablet (Cialis) 5 mg PO DAILY #90 tabs 06/09/21 ciprofloxacin HCl 500 mg tablet 500 mg PO BID #30 tabs 06/01/22 (Cipro) sulfamethoxazole 800 1 tab PO BID #30 tabs 06/24/22 mg-trimethoprim 160 mg tablet (Bactrim DS) tamsulosin 0.4 mg capsule See Rx Instructions .Route 07/14/22 .COMPLEX #180 caps Allergies Allergy/AdvReac Type Severity Reaction Status Date / Time No Known Drug Allergies Allergy Verified 06/22/22 07:58 Review of Systems Review of Systems Narrative: Complete review of systems is negative other than as noted above. Patient History Medical History BPH loc w urin obs/LUTS Broken ankle Broken shoulder Broken wrist Chronic anticoagulation Diabetes Elevated PSA Enlarged prostate Erectile dysfunction due to arterial insufficiency HTN (hypertension) Hyperlipemia Incomplete emptying of bladder Surgical History H/O heart artery stent H/O right wrist surgery History of arthroplasty of right ankle Previous back surgery Family History Father Cancer Mother Cancer Sister Cancer Social History marital status: unmarried,single household members: none education level: high school Previous occupational history: retired Smoking Status: Former smoker Smoking Status: Former smoker Substance Use Type: does not use Exam Narrative Exam Narrative: GENERAL: Alert, cooperative and in no distress. HEAD: Atraumatic. Normocephalic. EYES: Sclera are clear without icterus. Extraocular movements are full. ENT: No rhinorrhea. NECK: Supple. Full range of motion. CARDIOVASCULAR: Normal rate and rhythm without murmur gallop or rub. RESPIRATORY: Clear to auscultation. Breath sounds equal bilaterally. No wheezes, rales, or rhonchi. GASTROINTESTINAL: Abdomen soft, non-tender, nondistended. EXTREMITIES: No edema, full range of motion. No obvious trauma. BACK: Normal inspection, no CVA tenderness. NEURO: Nonfocal examination, normal speech SKIN: No rash or erythema of visible areas PSYCH: Normally oriented. Normal range of affect. Appropriate behavior Initial Vital Signs Initial Vital Signs: Vital Signs Temperature 97.9 F 07/28/22 03:54 Pulse Rate 80 07/28/22 03:54 Respiratory Rate 18 07/28/22 03:54 Blood Pressure 180/80 H 07/28/22 03:54 Pulse Oximetry 98 07/28/22 03:54 Oxygen Delivery Method 07/28/22 03:54 Course Vital Signs Vital signs: Vital Signs - 8 hr 07/28/22 03:54 Temperature 97.9 F Pulse Rate 80 Respiratory Rate 18 Blood Pressure 180/80 H Pulse Oximetry 98 Oxygen Delivery Method Room Air MDM - Male Genitourinary MDM Narrative Medical decision making narrative: We instilled a couple 100 mL of saline in the bladder and then removed the catheter. The patient was able to void about 50 mL with a postvoid residual of just over 100 mL. The patient would like to go home. Discharge Plan Departure Patient Disposition: Home Clinical Impression: Serrano catheter problem Activity Restrictions/Additional Instructions: I am glad that you are able to urinate now. Please feel free to return if you are having trouble. Otherwise, follow-up with Dr. Whatley has planned. Prescriptions: No Action sulfamethoxazole-trimethoprim [Bactrim DS] 800-160 mg tablet 1 tab PO BID Qty: 30 0RF tamsulosin 0.4 mg capsule See Rx Instructions .ROUTE .COMPLEX Qty: 180 3RF Dose Instruction: TAKE ONE CAPSULE BY MOUTH TWICE DAILY. Rx Instructions: TAKE ONE CAPSULE BY MOUTH TWICE DAILY. clopidogrel [Plavix] 75 mg tablet 75 mg PO DAILY tadalafil [Cialis] 5 mg tablet 5 mg PO DAILY Qty: 90 3RF torsemide 50 mg PO .prn Rx Instructions: Weight based parameters dulaglutide [Trulicity] SUBCUT ciprofloxacin HCl [Cipro] 500 mg tablet 500 mg PO BID Qty: 30 0RF atorvastatin 20 mg tablet 20 mg PO BEDTIME Referrals: Carlos Kaba MD [Primary Care Provider] -
== END 2022-07-28 04:27 | disposition home or self-care (01) ==
PROVIDERS: Emergency Provider Family Medicine Addiction Medicine; PCP Family Medicine
DX: T83.9XXA Unspecified complication of genitourinary prosthetic device, implant and graft, initial encounter (principal)
CPT/HCPCS: 51798; 99282

== ENCOUNTER → 2022-08-20 10:06 | Outpatient (CLI) | payer MEDICARE, OTHER, SELFPAY | PROVIDERS: PCP Family Medicine; Visit Provider Urology | DX: N40.1 Benign prostatic hyperplasia with lower urinary tract symptoms (principal); R33.9 Retention of urine, unspecified; R97.20 Elevated prostate specific antigen [PSA]; N52.01 Erectile dysfunction due to arterial insufficiency; Z79.01 Long term (current) use of anticoagulants | CPT/HCPCS: 51798; 81002; 87086; 99214 ==

== ENCOUNTER → 2022-10-11 07:41 | Outpatient (CLI) | payer MEDICARE, OTHER, SELFPAY ==
[2022-10-11 09:19] LABS: BUN Creatinine Ratio 14.9 (6-22); Blood Urea Nitrogen 47 mg/dL (9-20); Calcium 8.9 mg/dL (8.4-10.2); Carbon Dioxide 25 mmol/L (22-32); Chloride 103 mmol/L (98-107); Estimated Glomerular Filt Rate 19 mL/min (>60); Glucose 176 mg/dL (80-110); HEMOLYSIS < 15 (0-50); Potassium 4.3 mmol/L (3.4-5.1); Sodium 141 mmol/L (137-145)
== END ==
PROVIDERS: PCP Family Medicine; Referring Provider Urology; Visit Provider Urology
DX: N28.9 Disorder of kidney and ureter, unspecified (principal)
CPT/HCPCS: 36415; 80048

== ENCOUNTER → 2022-10-13 09:02 | Outpatient (CLI) | payer MEDICARE, OTHER, SELFPAY | PROVIDERS: PCP Family Medicine; Visit Provider Urology | DX: N40.1 Benign prostatic hyperplasia with lower urinary tract symptoms (principal); R33.9 Retention of urine, unspecified; N28.9 Disorder of kidney and ureter, unspecified; N52.01 Erectile dysfunction due to arterial insufficiency; K46.9 Unspecified abdominal hernia without obstruction or gangrene; K40.90 Unilateral inguinal hernia, without obstruction or gangrene, not specified as recurrent; R97.20 Elevated prostate specific antigen [PSA]; Z79.01 Long term (current) use of anticoagulants | CPT/HCPCS: 51798; 81002; 87086; 99214 ==

== ENCOUNTER → 2022-10-15 08:10 | Outpatient (CLI) | payer MEDICARE, OTHER, SELFPAY ==
[2022-10-15 09:19] LABS: Hematocrit 35.4 % (41-53); Hemoglobin 11.7 g/dL (13.5-17.5)
[2022-10-15 09:30] LABS: HEMOLYSIS < 15 (0-50); Iron 28 ug/dL (49-181)
[2022-10-15 09:31] LABS: Albumin 4.2 g/dL (3.5-5.0); Blood Urea Nitrogen 49 mg/dL (9-20); Calcium 8.9 mg/dL (8.4-10.2); Carbon Dioxide 25 mmol/L (22-32); Chloride 102 mmol/L (98-107); Estimated Glomerular Filt Rate 20 mL/min (>60); Glucose 214 mg/dL (80-110); HEMOLYSIS < 15 (0-50); Phosphorous 3.4 mg/dL (2.3-3.7); Potassium 4.4 mmol/L (3.4-5.1); Sodium 140 mmol/L (137-145)
[2022-10-15 09:41] LABS: Percent Iron Saturation 7 % (20-50); Total Iron Binding Capacity 397 ug/dL (261-462); Transferrin 293 mg/dL (206-381)
[2022-10-15 10:04] LABS: Vitamin D 25 Hydroxy (D3) 87.9 ng/mL (30.0-100.0)
[2022-10-15 10:05] LABS: Ferritin 21 ng/mL (18-464)
[2022-10-16 06:45] LABS: Parathyroid Hormone Int 136 pg/mL (15-65)
== END ==
PROVIDERS: PCP Family Medicine; Referring Provider Internal Medicine Nephrology; Visit Provider Internal Medicine Nephrology
DX: N18.4 Chronic kidney disease, stage 4 (severe) (principal); N18.32 Chronic kidney disease, stage 3b; E11.22 Type 2 diabetes mellitus with diabetic chronic kidney disease; I10 Essential (primary) hypertension; D50.0 Iron deficiency anemia secondary to blood loss (chronic); N25.81 Secondary hyperparathyroidism of renal origin
CPT/HCPCS: 36415; 80069; 82306; 82728; 83540; 83550; 83970; 85014; 85018

== ENCOUNTER → 2022-10-29 08:01 | Outpatient (CLI) | payer MEDICARE, OTHER, SELFPAY ==
--- NOTE | 2022-10-29 08:02 | DI.US.S_ITS ---
PROCEDURE: US ABDOMEN LIMITED INDICATIONS: MASS, RIGHT LOWER ABDOMEN, ? HERNIA VS CYST/LIPOMA TECHNIQUE: Real-time focused scanning was performed of the abdomen, with image documentation. COMPARISON: None. FINDINGS: Examination of right lower quadrant abdomen shows no anterior abdominal wall defect. Echogenic bowel loops with peristalsis seen in right lower quadrant. Trace amount of free fluid is also noted in right lower quadrant abdomen. No discrete soft tissue mass is seen. IMPRESSION: No right lower quadrant anterior abdominal wall defect or discrete soft tissue mass is seen. Dictated by: Blayne Hassan M.D. on 10/29/2022 at 8:44 Approved by: Blayne Hassan M.D. on 10/29/2022 at 8:45
== END ==
PROVIDERS: PCP Family Medicine; Referring Provider Surgery; Visit Provider Surgery
DX: R19.03 Right lower quadrant abdominal swelling, mass and lump (principal)
CPT/HCPCS: 76705

== ENCOUNTER → 2022-11-25 10:38 | Outpatient (CLI) | payer MEDICARE, OTHER, SELFPAY ==
[2022-11-25 11:47] LABS: Hematocrit 37.7 % (41-53); Hemoglobin 12.3 g/dL (13.5-17.5); Mean Corpuscular HGB Conc 32.6 % (30-36); Mean Corpuscular Hemoglobin 27.6 PG (26-34); Mean Corpuscular Volume 84.6 fL (80-100); Platelet Count 222 X10^3/uL (150-400); Red Blood Cell Count 4.46 X10^6/uL (4.5-5.9); Red Cell Distribution Width 16.6 % (11.6-14.8)
[2022-11-25 12:03] LABS: BUN Creatinine Ratio 18.2 (6-22); Blood Urea Nitrogen 47 mg/dL (9-20); Carbon Dioxide 21 mmol/L (22-32); Chloride 107 mmol/L (98-107); Estimated Glomerular Filt Rate 25 mL/min (>60); Glucose 108 mg/dL (80-110); HEMOLYSIS < 15 (0-50); Potassium 4.9 mmol/L (3.4-5.1); Sodium 139 mmol/L (137-145)
[2022-12-06 10:07] LABS: Percent Free Testosterone 1.51 % (1.50-4.20); Testosterone Free 2.05 ng/dL (5.00-21.00); Testosterone Total 135.5 ng/dL (264.0-916.0)
== END ==
PROVIDERS: PCP Family Medicine; Referring Provider Family Medicine; Visit Provider Family Medicine
DX: R53.83 Other fatigue (principal); D64.9 Anemia, unspecified; R68.82 Decreased libido
CPT/HCPCS: 36415; 80048; 84402; 84403; 85027

== ENCOUNTER → 2022-12-21 14:13 | Outpatient (CLI) | payer MEDICARE, OTHER, SELFPAY | PROVIDERS: PCP Family Medicine; Referring Provider Family Medicine; Visit Provider Family Medicine | DX: Z95.5 Presence of coronary angioplasty implant and graft (principal) | CPT/HCPCS: 93005 ==

== ENCOUNTER → 2023-01-10 13:39 | Outpatient (CLI) | payer MEDICARE, OTHER, SELFPAY ==
[2023-01-11 15:42] LABS: Prostate Specific Antigen 5.22 ng/mL (0.10-4.00)
== END ==
PROVIDERS: PCP Family Medicine; Referring Provider Urology; Visit Provider Urology
DX: R97.20 Elevated prostate specific antigen [PSA] (principal)
CPT/HCPCS: 36415; 84153

== ENCOUNTER → 2023-01-12 09:32 | Outpatient (CLI) | payer MEDICARE, OTHER, SELFPAY | PROVIDERS: PCP Family Medicine; Visit Provider Urology | DX: N40.1 Benign prostatic hyperplasia with lower urinary tract symptoms (principal); R33.9 Retention of urine, unspecified; N52.01 Erectile dysfunction due to arterial insufficiency; R97.20 Elevated prostate specific antigen [PSA]; R79.89 Other specified abnormal findings of blood chemistry; Z87.898 Personal history of other specified conditions | CPT/HCPCS: 51798; 81002; 87077; 87086; 87147; 87186; 99214 ==

== ENCOUNTER → 2023-01-26 06:53 | Outpatient (CLI) | payer MEDICARE, OTHER, SELFPAY ==
[2023-01-26 08:21] LABS: Add Manual Diff / Slide Review NO; Basophils Absolute Auto 100 /uL (0-100); Eosinophils Absolute Auto 100 /uL (0-450); Eosinophils Percent Auto 2.5 % (2-4); Hematocrit 36.4 % (41-53); Lymphocytes Absolute Auto 700 /uL (1100-4500); Lymphocytes Percent Auto 15.4 % (25-40); Mean Corpuscular HGB Conc 32.9 % (30-36); Mean Corpuscular Hemoglobin 27.6 PG (26-34); Mean Corpuscular Volume 83.9 fL (80-100); Monocytes Absolute Auto 600 /uL (0-900); Monocytes Percent Auto 12.4 % (3-14); Neutrophils Absolute Auto 3200 /uL (1500-7000); Neutrophils Percent Auto 67.7 % (50-75); Platelet Count 190 X10^3/uL (150-400); Red Blood Cell Count 4.34 X10^6/uL (4.5-5.9); Red Cell Distribution Width 17.1 % (11.6-14.8); White Blood Cell Count 4.7 X10^3/uL (4.5-11.0)
[2023-01-26 08:47] LABS: Cholesterol 106 mg/dL (140-199); HDL Cholesterol 55 mg/dL (40-60); LDL Cholesterol Calculated 41 mg/dL (<100); Triglycerides 51 mg/dL (35-150)
[2023-01-26 09:14] LABS: TSH w/ Reflex to FT4 2.94 uIU/mL (0.47-4.68)
== END ==
PROVIDERS: PCP Family Medicine; Referring Provider Internal Medicine Nephrology; Visit Provider Internal Medicine Nephrology
DX: I10 Essential (primary) hypertension (principal); E11.22 Type 2 diabetes mellitus with diabetic chronic kidney disease; N18.32 Chronic kidney disease, stage 3b; N18.4 Chronic kidney disease, stage 4 (severe); D50.0 Iron deficiency anemia secondary to blood loss (chronic); N25.81 Secondary hyperparathyroidism of renal origin; E78.5 Hyperlipidemia, unspecified; R79.89 Other specified abnormal findings of blood chemistry
CPT/HCPCS: 36415; 80061; 84443; 85025

== ENCOUNTER → 2023-03-04 06:59 | Outpatient (CLI) | payer MEDICARE, OTHER, SELFPAY ==
[2023-03-04 08:18] LABS: Add Manual Diff / Slide Review NO; Basophils Absolute Auto 100 /uL (0-100); Eosinophils Absolute Auto 100 /uL (0-450); Hematocrit 37.2 % (41-53); Hemoglobin 12.2 g/dL (13.5-17.5); Lymphocytes Absolute Auto 800 /uL (1100-4500); Lymphocytes Percent Auto 13.9 % (25-40); Mean Corpuscular HGB Conc 32.8 % (30-36); Mean Corpuscular Hemoglobin 27.1 PG (26-34); Mean Corpuscular Volume 82.6 fL (80-100); Monocytes Absolute Auto 700 /uL (0-900); Monocytes Percent Auto 13.4 % (3-14); Neutrophils Absolute Auto 3700 /uL (1500-7000); Neutrophils Percent Auto 68.7 % (50-75); Platelet Count 242 X10^3/uL (150-400); Red Blood Cell Count 4.51 X10^6/uL (4.5-5.9); Red Cell Distribution Width 17.4 % (11.6-14.8); White Blood Cell Count 5.4 X10^3/uL (4.5-11.0)
[2023-03-04 08:29] LABS: Creatinine Urine Random 70.3 mg/dL
[2023-03-04 08:33] LABS: Microalbumi Creatinin Ratio Ur 140.8 ug/mg CR (<30); Microalbumin Urine Random 9.9 mg/dL (0-1.6)
[2023-03-04 22:53] LABS: Sex Hormone Binding Globulin 58.4 nmol/L (19.3-76.4)
[2023-03-05 06:41] LABS: Labcorp Hemoglobin (Hb) A1c 7.2 % (4.8-5.6)
[2023-03-06 06:46] LABS: PSA Free % 31.6 % (.); PSA, Total 9.3 ng/mL (0.0-4.0)
[2023-03-09 13:09] LABS: Percent Free Testosterone 2.05 % (1.50-4.20); Testosterone Free 6.81 ng/dL (5.00-21.00); Testosterone Total 332.2 ng/dL (264.0-916.0)
[2023-03-10 17:31] LABS: Estrogen 249 pg/mL (56-213)
== END ==
PROVIDERS: PCP Family Medicine; Referring Provider Internal Medicine Nephrology; Visit Provider Internal Medicine Nephrology
DX: E11.22 Type 2 diabetes mellitus with diabetic chronic kidney disease (principal); N18.32 Chronic kidney disease, stage 3b; I10 Essential (primary) hypertension; N18.4 Chronic kidney disease, stage 4 (severe); D50.0 Iron deficiency anemia secondary to blood loss (chronic); N25.81 Secondary hyperparathyroidism of renal origin; N40.1 Benign prostatic hyperplasia with lower urinary tract symptoms; R79.89 Other specified abnormal findings of blood chemistry; E78.5 Hyperlipidemia, unspecified; E11.69 Type 2 diabetes mellitus with other specified complication
CPT/HCPCS: 36415; 82043; 82570; 82672; 83036; 84153; 84154; 84270; 84402; 84403; 84443; 85025

== ENCOUNTER → 2023-04-15 10:50 | Outpatient (CLI) | payer MEDICARE, OTHER, SELFPAY ==
[2023-04-15 12:15] LABS: Add Manual Diff / Slide Review NO; Basophils Absolute Auto 100 /uL (0-100); Basophils Percent Auto 1.8 % (0-2); Eosinophils Absolute Auto 100 /uL (0-450); Eosinophils Percent Auto 1.4 % (2-4); Hematocrit 38.5 % (41-53); Hemoglobin 12.7 g/dL (13.5-17.5); Lymphocytes Absolute Auto 900 /uL (1100-4500); Lymphocytes Percent Auto 17.1 % (25-40); Mean Corpuscular HGB Conc 33.1 % (30-36); Mean Corpuscular Hemoglobin 27.3 PG (26-34); Mean Corpuscular Volume 82.4 fL (80-100); Monocytes Absolute Auto 600 /uL (0-900); Monocytes Percent Auto 11.7 % (3-14); Neutrophils Absolute Auto 3500 /uL (1500-7000); Platelet Count 224 X10^3/uL (150-400); Red Blood Cell Count 4.67 X10^6/uL (4.5-5.9); Red Cell Distribution Width 17.8 % (11.6-14.8); White Blood Cell Count 5.1 X10^3/uL (4.5-11.0)
[2023-04-15 12:36] LABS: BUN Creatinine Ratio 14.3 (6-22); Blood Urea Nitrogen 40 mg/dL (9-20); Calcium 9.1 mg/dL (8.4-10.2); Carbon Dioxide 22 mmol/L (22-32); Chloride 104 mmol/L (98-107); Estimated Glomerular Filt Rate 22 mL/min (>60); Glucose 90 mg/dL (80-110); HEMOLYSIS < 15 (0-50); Potassium 4.9 mmol/L (3.4-5.1); Sodium 138 mmol/L (137-145)
[2023-04-16 07:54] LABS: PSA Free % 33.5 % (.); PSA, Total 11.3 ng/mL (0.0-4.0)
== END ==
PROVIDERS: Urology; PCP Family Medicine; Referring Provider Internal Medicine Nephrology; Visit Provider Internal Medicine Nephrology
DX: N18.4 Chronic kidney disease, stage 4 (severe) (principal); R97.20 Elevated prostate specific antigen [PSA]
CPT/HCPCS: 36415; 80048; 84153; 84154; 85025

== ENCOUNTER → 2023-05-31 13:36 | Outpatient (CLI) | payer MEDICARE, OTHER, SELFPAY ==
--- NOTE | 2023-05-31 13:38 | DI.MRI.S_ITS ---
PROCEDURE: MR PELVIC PROSTATE PROTOCOL INDICATIONS: Elevated and rising PSA TECHNIQUE: Coronal HASTE, axial T1 FSE with fat saturation, 3-plane nonbreath-hold T2 FSE. After the administration of contrast, dynamic axial, delayed axial and coronal VIBE or 2-D FLASH with fat saturation through the pelvis. Optional diffusion weighted imaging and ADC may be performed. COMPARISON: [facility], CT, CT CHEST ABDOMEN PELVIS WITHOUT CONTRAST, 12/24/2021, 13:29. FINDINGS: Image quality: Diffusion weighted and dynamic contrast enhanced images are diagnostic. Prostate: Gland size is 5.5 x 4.1 x 5.9 cm; ellipsoid gland volume is 69 mL. Mild linear and wedge-shaped ADC hypointensities present within the prostate peripheral zone with indistinct T2 correlates (PI-RADS 2 findings). Enlargement of the prostate transitional zone with findings typical of benign prostatic hyperplasia. No large lesion strongly stands out against background parenchymal changes of BPH on T2 weighted images (PI-RADS 2 findings). Genitourinary system: Bladder wall thickness is normal. Distal ureters are non distended. Bowel and peritoneum: Small amount nonspecific lower abdominal and pelvic free fluid.. Inferior colon and small bowel loops are normal in caliber. Nodes and vessels: No pelvic or inguinal adenopathy by size criteria. Iliac vessels are normal in caliber. Bones: Postsurgical changes lower lumbar spine. No definite lesions to suggest metastases. IMPRESSION: 1. No large or highly suspicious focal prostate lesion to direct biopsy. There is enlargement of the prostate transitional zone with findings typical of benign prostatic hyperplasia, with prostate volume estimated at 69 cc. 2. No definite suspicious lymph nodes identified within the imaged pelvis. 3. Small amount of nonspecific lower abdominal/pelvic free fluid. Dictated by: Henri Raphael M.D. on 06/01/2023 at 9:27 Approved by: Henri Raphael M.D. on 06/01/2023 at 9:44
== END ==
PROVIDERS: PCP Family Medicine; Referring Provider Urology; Visit Provider Urology
DX: R97.20 Elevated prostate specific antigen [PSA] (principal); N40.0 Benign prostatic hyperplasia without lower urinary tract symptoms
CPT/HCPCS: 72197; A9579

== ENCOUNTER → 2023-08-19 09:41 | Outpatient (CLI) | payer MEDICARE, OTHER, SELFPAY ==
[2023-08-19 10:55] LABS: Add Manual Diff / Slide Review NO; Basophils Absolute Auto 100 /uL (0-100); Basophils Percent Auto 1.5 % (0-2); Eosinophils Absolute Auto 100 /uL (0-450); Eosinophils Percent Auto 1.4 % (2-4); Hematocrit 40.2 % (41-53); Hemoglobin 13.2 g/dL (13.5-17.5); Lymphocytes Absolute Auto 800 /uL (1100-4500); Mean Corpuscular HGB Conc 32.8 % (30-36); Mean Corpuscular Hemoglobin 29.2 PG (26-34); Mean Corpuscular Volume 88.8 fL (80-100); Monocytes Absolute Auto 500 /uL (0-900); Neutrophils Absolute Auto 2900 /uL (1500-7000); Neutrophils Percent Auto 68.1 % (50-75); Platelet Count 189 X10^3/uL (150-400); Red Blood Cell Count 4.52 X10^6/uL (4.5-5.9); Red Cell Distribution Width 19.2 % (11.6-14.8); White Blood Cell Count 4.3 X10^3/uL (4.5-11.0)
[2023-08-19 11:08] LABS: Hemoglobin A1C% w Est Avg Glu 6.6 % (4.0-6.0)
[2023-08-19 11:42] LABS: Alanine Aminotransferase 27 IU/L (<50); Albumin 3.8 g/dL (3.5-5.0); Albumin Globulin Ratio 1.1 (1.0-2.8); Alkaline Phosphatase 188 U/L (38-126); Aspartate Aminotransferase 38 IU/L (17-59); BUN Creatinine Ratio 17.9 (6-22); Bilirubin Total 1.8 mg/dL (0.2-1.3); Blood Urea Nitrogen 49 mg/dL (9-20); Calcium 9.2 mg/dL (8.4-10.2); Carbon Dioxide 19 mmol/L (22-32); Chloride 110 mmol/L (98-107); Estimated Glomerular Filt Rate 23 mL/min (>60); Globulin 3.4 g/dL (1.7-4.1); Glucose 177 mg/dL (80-110); HEMOLYSIS < 15 (0-50); Potassium 4.7 mmol/L (3.4-5.1); Sodium 139 mmol/L (137-145); Total Protein 7.2 g/dL (6.3-8.2)
[2023-08-22 23:27] LABS: PSA Free % 37.2 % (.); PSA, Total 3.6 ng/mL (0.0-4.0)
== END ==
PROVIDERS: PCP Family Medicine; Referring Provider Urology; Visit Provider Urology
DX: R97.20 Elevated prostate specific antigen [PSA] (principal); E11.9 Type 2 diabetes mellitus without complications; N28.9 Disorder of kidney and ureter, unspecified; D64.9 Anemia, unspecified
CPT/HCPCS: 36415; 80053; 83036; 84153; 84154; 85025